=== PATIENT | male | born 1955 | race Caucasian/White ===

== ENCOUNTER 2021-05-17 10:46 | Inpatient (IN) | payer OTHER, MEDICARE, SELFPAY ==
[2021-05-17] VITALS (28 sets, daily range): BP systolic 103–188; BP diastolic 60–102; PULSE 74–123; RESP 15–47; TEMP 36.2–36.9; O2SAT 91–100; BMI 26.3; BMI 25.5
--- NOTE | 2021-05-17 11:16 | DI.RAD.S_ITS ---
PROCEDURE: XR CHEST 1V INDICATIONS: shortness of breath TECHNIQUE: One view of the chest was acquired. COMPARISON: [facility], [place], PET NECK TO MID THIGH STD, 01/10/2016, 9:01. [facility], CT, CT ANGIO CHEST PE, 12/14/2015, 15:42. FINDINGS: Surgical changes and devices: None. Lungs and pleura: Probable moderate right pleural effusion with associated right basilar atelectasis. Mediastinum: Mediastinal contours appear normal. Heart size is normal. Bones and chest wall: Question vague sclerotic appearance of the bones. Overlying soft tissues appear unremarkable. IMPRESSION: 1. Probable right pleural effusion with associated right basilar atelectasis. 2. Question vague sclerotic appearance of the bones. Comment: Consider chest CT for further evaluation. Dictated by: Billy White M.D. on 05/17/2021 at 12:05 Approved by: Billy White M.D. on 05/17/2021 at 12:09
--- NOTE | 2021-05-17 11:48 | ED.SOB ---
HPI - SOB/Dyspnea General Chief Complaint: Shortness of Breath/Dyspnea Stated Complaint: Possible blood clot- sent by PCP Time Seen by Provider: 05/17/21 11:19 Source: patient Mode of arrival: Ambulatory Limitations: no limitations History of Present Illness HPI Narrative: 65-year-old male nonsmoker with history of hypertension and stage IV prostate cancer presents at the request of their primary care provider (per the ) for evaluation of blood clot. Patient reports increasing shortness of breath and sharp and stabbing chest pain over the past 2 weeks. His pain is worse with deep breath and with ambulation. He denies any radiation of the pain and states it is sharp and stabbing. He does have increasing shortness of breath and fatigue, with exertion. He has had no recent travel. He has had no fever or chills. He has had cough but without any blood. He denies any pain, swelling of his lower extremity Related Data Home Medications Medication Instructions Recorded Confirmed ASPIRIN (Aspirin Ec) 81 mg PO Q DAY #0 01/05/07 05/17/21 bicalutamide 50 mg tablet 50 mg PO DAILY 05/17/21 05/17/21 carvedilol 12.5 mg tablet 12.5 mg PO BID 05/17/21 05/17/21 cholecalciferol (vitamin D3) 250 250 mcg PO DAILY 05/17/21 05/17/21 mcg (10,000 unit) tablet cyanocobalamin (vitamin B-12) 100 100 mcg PO DAILY 05/17/21 05/17/21 mcg tablet dexamethasone 1 mg tablet 1 mg PO DAILY 05/17/21 05/17/21 duloxetine 30 mg capsule,delayed 30 mg PO DAILY 05/17/21 05/17/21 release fluticasone propionate 220 1 puff INHALATION BID 05/17/21 05/17/21 mcg/actuation HFA aerosol inhaler (Flovent HFA) losartan 50 mg tablet 50 mg PO DAILY 05/17/21 05/17/21 mirtazapine 15 mg tablet 15 mg PO DAILY 05/17/21 05/17/21 omeprazole 20 mg capsule,delayed 20 mg PO DAILY 05/17/21 05/17/21 release ondansetron 8 mg disintegrating 8 mg TRANSLINGUAL Q8H PRN 05/17/21 05/17/21 tablet oxycodone 5 mg tablet 5 mg PO Q4H PRN 05/17/21 05/17/21 prochlorperazine maleate 10 mg 10 mg PO Q6H PRN 05/17/21 05/17/21 tablet Allergies Allergy/AdvReac Type Severity Reaction Status Date / Time No Known Drug Allergies Allergy Verified 05/17/21 11:12 Review of Systems Review of Systems Narrative: GENERAL: Denies chills, fatigue, malaise, fever, sweats. HEENT: Denies sinus pain, ear pain, sore throat, difficulty swallowing, dizziness. RESPIRATORY: See HPI CARDIOVASCULAR: See HPI GASTROINTESTINAL: Denies nausea, vomiting, abdominal pain, diarrhea, constipation, melena. : Denies dysuria, frequency, incontinence, hematuria, urinary retention. MUSCULOSKELETAL: denies weakness, joint pain, or bony pain SKIN: Denies rash, skin lesions, or other NEUROLOGIC: Denies weakness, headache, numbness, change in speech, confusion, seizures, incoordination. PSYCHIATRIC: No concerning psychosocial issues. 12 point review of systems is negative except for those stated above Patient History Social History household members: spouse Smoking Status: Former smoker alcohol intake: current Smoking Status: Unknown if ever smoked alcohol intake frequency: a few times a week Substance Use Type: does not use Exam Narrative Exam Narrative: GENERAL: [65] year old patient appears stated age. Well-developed patient, in mild distress. Resting comfortably HEAD: Atraumatic. Normocephalic. EYES: Pupils equal round and reactive. Extraocular motions intact. No scleral icterus. No injection or drainage. ENT: Nose without bleeding, purulent drainage. Throat without erythema, tonsillar hypertrophy or exudate. Airway patent. NECK: Trachea midline. Non tender CARDIOVASCULAR: Regular rate and rhythm without murmurs, gallops, or rubs. RESPIRATORY: No significant work of breathing, however there are faint crackles noted bilaterally GASTROINTESTINAL: Abdomen soft, non-tender, nondistended. EXTREMITIES: No edema or joint tenderness. BACK: Nontender without deformity or crepitance. No flank tenderness. NEURO: AOx3. SKIN: No rash or erythema of visible areas Initial Vital Signs Initial Vital Signs: Vital Signs Temperature 97.2 F L 05/17/21 11:12 Pulse Rate 80 05/17/21 11:12 Respiratory Rate 15 05/17/21 11:12 Blood Pressure 175/82 H 05/17/21 11:12 Pulse Oximetry 97 05/17/21 11:12 Course Orders Ordered: ED Orders 05/17/21 11:16 XR chest 1V Stat 05/17/21 11:28 EKG-12 Lead Stat 05/17/21 11:35 Complete Blood Count AUTO DIFF Stat Comprehensive Metabolic Panel Stat Lactate (Lactic Acid) Stat NT-proBNP (BNP-Adult 18+) Stat Troponin & CK Cardiac Panel Stat 05/17/21 12:41 CT angio chest PE protocol Stat 05/17/21 13:08 Urinalysis and Microscopic Stat 05/17/21 13:26 COVID19 - ADMIT ([employer] swab/PCR) Stat COVID19 -Nasal swab/Pre-Proc Stat Acetaminophen (Acetaminophen 325 Mg Tablet) 650 mg PO Q6HR PRN PRN Reason: Fever/Mild Pain (1-3) Hydrocodone Bitart/Acetaminophen (Hydrocodone/Acet 5/325 Tablet) 2 tab PO Q4HR PRN PRN Reason: Pain, Severe (7-10) Aspirin (Aspirin Ec 81 Mg Tablet) 81 mg PO DAILY [facility] Bicalutamide (Bicalutamide 50 Mg Tablet) 50 mg PO DAILY [facility] Carvedilol (Carvedilol 12.5 Mg Tablet) 12.5 mg PO BID [facility] Dexamethasone (Dexamethasone 1 Mg Tablet) 1 mg PO DAILY [facility] Duloxetine HCl (Duloxetine 30 Mg Capsule) 30 mg PO DAILY [facility] Enoxaparin Sodium (Enoxaparin 40 Mg/0.4 Ml Syringe) 40 mg SUBCUT DAILY [facility] Losartan Potassium (Losartan 50 Mg Tablet) 50 mg PO DAILY [facility] Magnesium Hydroxide (Magnesium Hydroxide 30 Ml Udc) 30 ml PO DAILY PRN PRN Reason: Reflux Mirtazapine (Mirtazapine 15 Mg Tablet) 15 mg PO DAILY [facility] Naloxone HCl (Naloxone 0.4 Mg/Ml Vial) 0.2 mg IV Q2MIN PRN PRN Reason: Opiate Reversal Fluticasone Propionate [Flovent Hfa] 220 Mcg/Actuation Hfa 1 puff INH BID [facility] Ondansetron HCl (Ondansetron 4 Mg/2 Ml Inj) 4 mg IV Q8HR PRN PRN Reason: Nausea And Vomiting Oxycodone HCl (Oxycodone Ir 5 Mg Tablet) 5 mg PO Q4H PRN PRN Reason: Pain (Scale Score 4-6) Pantoprazole Sodium (Pantoprazole Dr 20 Mg Tablet) 20 mg PO 0600 JEAN-CLAUDE Prochlorperazine (Prochlorperazine 5 Mg Tablet) 10 mg PO Q6H PRN PRN Reason: Nausea Sennosides (Sennosides 8.6 Mg Tablet) 17.2 mg PO BEDTIME JEAN-CLAUDE Discontinued Medications Furosemide (Furosemide 40 Mg/4 Ml Vial) 40 mg IV NOW ONE Stop: 05/17/21 14:12 Last Admin: 05/17/21 14:26 Dose: 40 mg Documented by: DENNYS Oxycodone HCl (Oxycodone Ir 5 Mg Tablet) 10 mg PO NOW ONE Stop: 05/17/21 15:30 Last Admin: 05/17/21 15:45 Dose: 10 mg Documented by: DENNYS Reevaluation(s) Reevaluation #1: Upon return from CT he is noticeably more short of breath ends now requiring between 2 and 4 L by nasal cannula Reevaluation #2: Patient was taken off nasal cannula for a bit and seemed to be doing okay, minor ambulation caused patient to become significantly hypoxic and increased work of breathing. At this point he has taken back to his bed, put back on nasal cannula decision to admit Vital Signs Vital signs: Vital Signs - 8 hr 05/17/21 11:12 05/17/21 11:27 05/17/21 11:30 Temperature 97.2 F L Pulse Rate 80 75 74 Respiratory Rate 15 35 H Blood Pressure 175/82 H Pulse Oximetry 97 92 94 05/17/21 11:32 05/17/21 12:00 05/17/21 12:01 Temperature Pulse Rate 75 77 81 Respiratory Rate 34 H 33 H 36 H Blood Pressure 177/86 H 173/79 H Pulse Oximetry 96 94 95 05/17/21 12:30 05/17/21 12:57 05/17/21 13:00 Temperature Pulse Rate 80 98 H 91 H Respiratory Rate 35 H 41 H 37 H Blood Pressure 169/80 H 188/102 H 176/81 H Pulse Oximetry 95 91 98 05/17/21 13:30 05/17/21 13:31 05/17/21 13:40 Temperature Pulse Rate 96 H 107 H Respiratory Rate 38 H Blood Pressure 170/97 H Pulse Oximetry 100 99 05/17/21 14:00 05/17/21 14:27 05/17/21 14:30 Temperature Pulse Rate 97 H 96 H 93 H Respiratory Rate 36 H 26 H 37 H Blood Pressure 159/82 H 159/82 H 175/84 H Pulse Oximetry 99 94 95 05/17/21 15:00 05/17/21 15:34 05/17/21 15:36 Temperature Pulse Rate 96 H 119 H 102 H Respiratory Rate 37 H 47 H 45 H Blood Pressure 155/88 H 185/79 H Pulse Oximetry 93 93 92 05/17/21 16:00 05/17/21 16:30 Temperature Pulse Rate 112 H 117 H Respiratory Rate 39 H 24 Blood Pressure 129/84 136/86 Pulse Oximetry 93 93 MDM - SOB/Dyspnea Lab Data Result diagrams: 05/17/21 11:35 05/17/21 11:35 Labs: Lab Results 05/17/21 05/17/21 05/17/21 Range/Units 11:35 11:35 11:35 WBC 10.1 (4.5-11.0) X10^3/uL RBC 3.14 L (4.5-5.9) X10^6/uL Hgb 11.3 L (13.5-17.5) g/dL Hct 33.4 L (41-53) % MCV 106.5 H (80-100) fL MCH 35.9 H (26-34) PG MCHC 33.7 (30-36) % RDW 19.0 H (11.6-14.8) % Plt Count 31 L* (150-400) X10^3/uL Neut % (Auto) Not Reportable Lymph % (Auto) Not Reportable [place] % (Auto) Not Reportable Eos % (Auto) Not Reportable Baso % (Auto) Not Reportable Lymph # (Auto) Not Reportable [place] # (Auto) Not Reportable Baso # (Auto) Not Reportable Total Counted 100 Seg Neutrophils % 44.0 (38-70) % Band Neutrophils % 14.0 H (3-7) % Lymphocytes % (Manual) 20.0 L (25-45) % Atypical Lymphs % 1.0 H ( - 0) % Monocytes % (Manual) 6.0 (2-11) % Eosinophils % (Manual) 2.0 (2-4) % Metamyelocytes % 6.0 H (-0) % Myelocytes % 7.0 H (-0) % Neutrophils # (Manual) 5858 (4062-1557) /uL Nucleated RBCs 12 H ( - 0) #/Diff Platelet Estimate Decreased on smear RBC Morphology See below Polychromasia 3+ H Macrocytosis 3+ H Sodium 132 L (137-145) mmol/L Potassium 4.9 (3.4-5.1) mmol/L Chloride 95 L (98-107) mmol/L Carbon Dioxide 27 (22-32) mmol/L BUN 24 H (9-20) mg/dL Creatinine 0.69 (0.66-1.25) mg/dL Estimated GFR > 60.0 (>60) mL/min BUN/Creatinine Ratio 34.8 H (6-22) Glucose 102 (80-110) mg/dL Lactate 1.7 (0.7-2.1) mmol/L Calcium 9.9 (8.4-10.2) mg/dL Total Bilirubin 1.7 H (0.2-1.3) mg/dL AST 69 H (17-59) IU/L ALT 37 (<50) IU/L Alkaline Phosphatase 341 H (38-126) U/L Total Creatine Kinase (55-170) U/L CK-MB (CK-2) CK-MB (CK-2) Rel Index Troponin I (0.01-0.034) ng/mL NT-Pro-B Natriuret Pep 961 H (<125) pg/mL Total Protein 7.8 (6.3-8.2) g/dL Albumin 3.9 (3.5-5.0) g/dL Globulin 3.9 (1.7-4.1) g/dL Albumin/Globulin Ratio 1.0 (1.0-2.8) Urine Color Urine Appearance Urine pH (4.5-8.0) Ur Specific [place] (1.000-1.035) Urine Protein (Negative) Urine Glucose (UA) (Negative) g/dL Urine Ketones (NEGATIVE) Urine Occult Blood (Negative) Urine Nitrate (Negative) Urine Bilirubin (NEGATIVE) Urine Urobilinogen (0.2) E.U./dL Ur Leukocyte Esterase (NEGATIVE) Urine RBC (0-5/HPF) Urine WBC (0-5/HPF) Ur Squamous Epith Cells (0-5/HPF) Urine Bacteria (None) Ur Culture Indicated? SARS-CoV-2 (PCR) (Negative) 05/17/21 05/17/21 05/17/21 Range/Units 11:35 13:08 13:26 WBC (4.5-11.0) X10^3/uL RBC (4.5-5.9) X10^6/uL Hgb (13.5-17.5) g/dL Hct (41-53) % MCV (80-100) fL MCH (26-34) PG MCHC (30-36) % RDW (11.6-14.8) % Plt Count (150-400) X10^3/uL Neut % (Auto) Lymph % (Auto) [place] % (Auto) Eos % (Auto) Baso % (Auto) Lymph # (Auto) [place] # (Auto) Baso # (Auto) Total Counted Seg Neutrophils % (38-70) % Band Neutrophils % (3-7) % Lymphocytes % (Manual) (25-45) % Atypical Lymphs % ( - 0) % Monocytes % (Manual) (2-11) % Eosinophils % (Manual) (2-4) % Metamyelocytes % (-0) % Myelocytes % (-0) % Neutrophils # (Manual) (7776-1905) /uL Nucleated RBCs ( - 0) #/Diff Platelet Estimate RBC Morphology Polychromasia Macrocytosis Sodium (137-145) mmol/L Potassium (3.4-5.1) mmol/L Chloride (98-107) mmol/L Carbon Dioxide (22-32) mmol/L BUN (9-20) mg/dL Creatinine (0.66-1.25) mg/dL Estimated GFR (>60) mL/min BUN/Creatinine Ratio (6-22) Glucose (80-110) mg/dL Lactate (0.7-2.1) mmol/L Calcium (8.4-10.2) mg/dL Total Bilirubin (0.2-1.3) mg/dL AST (17-59) IU/L ALT (<50) IU/L Alkaline Phosphatase (38-126) U/L Total Creatine Kinase 30 L (55-170) U/L CK-MB (CK-2) TNP CK-MB (CK-2) Rel Index TNP Troponin I < 0.012 (0.01-0.034) ng/mL NT-Pro-B Natriuret Pep (<125) pg/mL Total Protein (6.3-8.2) g/dL Albumin (3.5-5.0) g/dL Globulin (1.7-4.1) g/dL Albumin/Globulin Ratio (1.0-2.8) Urine Color Yellow Urine Appearance Clear Urine pH 7.0 (4.5-8.0) Ur Specific [place] 1.010 (1.000-1.035) Urine Protein Negative (Negative) Urine Glucose (UA) Trace H (Negative) g/dL Urine Ketones Negative (NEGATIVE) Urine Occult Blood 1+ H (Negative) Urine Nitrate Negative (Negative) Urine Bilirubin Negative (NEGATIVE) Urine Urobilinogen 4.0 H (0.2) E.U./dL Ur Leukocyte Esterase Negative (NEGATIVE) Urine RBC 5-10/hpf H (0-5/HPF) Urine WBC 0-1/hpf (0-5/HPF) Ur Squamous Epith Cells 0-1 /hpf (0-5/HPF) Urine Bacteria Few (2-10) H (None) Ur Culture Indicated? Cult not indicated SARS-CoV-2 (PCR) Negative (Negative) 05/17/21 Range/Units 13:26 WBC (4.5-11.0) X10^3/uL RBC (4.5-5.9) X10^6/uL Hgb (13.5-17.5) g/dL Hct (41-53) % MCV (80-100) fL MCH (26-34) PG MCHC (30-36) % RDW (11.6-14.8) % Plt Count (150-400) X10^3/uL Neut % (Auto) Lymph % (Auto) [place] % (Auto) Eos % (Auto) Baso % (Auto) Lymph # (Auto) [place] # (Auto) Baso # (Auto) Total Counted Seg Neutrophils % (38-70) % Band Neutrophils % (3-7) % Lymphocytes % (Manual) (25-45) % Atypical Lymphs % ( - 0) % Monocytes % (Manual) (2-11) % Eosinophils % (Manual) (2-4) % Metamyelocytes % (-0) % Myelocytes % (-0) % Neutrophils # (Manual) (0218-8738) /uL Nucleated RBCs ( - 0) #/Diff Platelet Estimate RBC Morphology Polychromasia Macrocytosis Sodium (137-145) mmol/L Potassium (3.4-5.1) mmol/L Chloride (98-107) mmol/L Carbon Dioxide (22-32) mmol/L BUN (9-20) mg/dL Creatinine (0.66-1.25) mg/dL Estimated GFR (>60) mL/min BUN/Creatinine Ratio (6-22) Glucose (80-110) mg/dL Lactate (0.7-2.1) mmol/L Calcium (8.4-10.2) mg/dL Total Bilirubin (0.2-1.3) mg/dL AST (17-59) IU/L ALT (<50) IU/L Alkaline Phosphatase (38-126) U/L Total Creatine Kinase (55-170) U/L CK-MB (CK-2) CK-MB (CK-2) Rel Index Troponin I (0.01-0.034) ng/mL NT-Pro-B Natriuret Pep (<125) pg/mL Total Protein (6.3-8.2) g/dL Albumin (3.5-5.0) g/dL Globulin (1.7-4.1) g/dL Albumin/Globulin Ratio (1.0-2.8) Urine Color Urine Appearance Urine pH (4.5-8.0) Ur Specific [place] (1.000-1.035) Urine Protein (Negative) Urine Glucose (UA) (Negative) g/dL Urine Ketones (NEGATIVE) Urine Occult Blood (Negative) Urine Nitrate (Negative) Urine Bilirubin (NEGATIVE) Urine Urobilinogen (0.2) E.U./dL Ur Leukocyte Esterase (NEGATIVE) Urine RBC (0-5/HPF) Urine WBC (0-5/HPF) Ur Squamous Epith Cells (0-5/HPF) Urine Bacteria (None) Ur Culture Indicated? SARS-CoV-2 (PCR) Negative (Negative) Imaging Data CT scan - chest: Radiologist's Impression: Ariel Hercules 65 M [address] [id number] Scan ReportSigned Patient: MargretjuanAriel EMR#: [id number]: 3Acct:[id number]/Sex: 65 / MDate of Service: 05/17/21Loc: EDAccession Number: [id number] Procedure: CT angio chest PE protocol Ordering Provider: Antoine Phillips D.O. PROCEDURE: CT ANGIO CHEST PE PROTOCOL INDICATIONS: chest pain, SOB, elevated D Dimer at outside facility, hx of TECHNIQUE: After the administration of intravenous contrast, 2 mm thick sections acquired from the pulmonary apices to the posterior costophrenic angles. 3-dimensional maximum intensity projection (MIP) coronal and sagittal reformats were then acquired through the thorax. For radiation dose reduction, the following was used: automated exposure control, adjustment of mA and/or kV according to patient size. COMPARISON: [facility], , XR CHEST 1V, 05/17/2021, 11:35. FINDINGS: Image quality: Excellent. Pulmonary arteries: Pulmonary arteries are normal in size, and demonstrate no intraluminal filling defects to suggest central pulmonary embolism. Lungs and pleura: There is patchy bilateral ground-glass opacity, left greater than right. Cannot exclude viral pneumonia. There is chronic volume loss in the right lung associated with a small right pleural effusion. There is insufficient fluid currently for thoracentesis.. Central and peripheral airways are patent. Mediastinum: Heart size is normal, without pericardial effusion. No mediastinal or hilar adenopathy. Thoracic aorta is normal in caliber and enhancement. Esophagus is normal in caliber, without hiatal hernia. Bones and chest wall: There is a diffuse subtle sclerotic process throughout numerous bones consistent with sclerotic metastatic prostate to bone. There is a healing pathologic fracture of the left posterior 9th rib. Thyroid gland is unremarkable as visualized. No axillary or supraclavicular adenopathy. Abdomen: Visualized upper abdominal solid organs appear normal in the early arterial phase of enhancement. IMPRESSION: 1. No evidence acute pulmonary emboli. 2. Patchy bilateral ground-glass opacities, left greater than right. Cannot exclude viral pneumonia. Alternatively, this may potentially represent asymmetric pulmonary edema or other inflammatory or infectious process. 3. Small right pleural effusion with chronic right sided volume loss. Fluid insufficient to sample currently. 4. Sclerotic bony metastatic disease consistent with prostate metastatic disease. Dictated by: Billy White M.D. on 05/17/2021 at 13:11 Approved by: Billy White M.D. on 05/17/2021 at 13:30 Discharge Plan Departure Patient Disposition: Admitted As Inpatient Clinical Impression: Acute hypoxemic respiratory failure CHF (congestive heart failure) Qualifiers: Heart failure type: unspecified Heart failure chronicity: unspecified Qualified Code(s): I50.9 - Heart failure, unspecified Admit Date/Time: 05/17/21 16:37 Admit Provider: Ivone Segundo
[2021-05-17 12:12] LABS: Hematocrit 33.4 % (41-53); Hemoglobin 11.3 g/dL (13.5-17.5); Mean Corpuscular HGB Conc 33.7 % (30-36); Mean Corpuscular Hemoglobin 35.9 PG (26-34); Mean Corpuscular Volume 106.5 fL (80-100); Red Blood Cell Count 3.14 X10^6/uL (4.5-5.9); White Blood Cell Count 10.1 X10^3/uL (4.5-11.0)
[2021-05-17 12:16] LABS: Add Manual Diff / Slide Review YES; Platelet Count 31 X10^3/uL (150-400)
[2021-05-17 12:18] LABS: Lactate (Lactic Acid) 1.7 mmol/L (0.7-2.1)
[2021-05-17 12:19] LABS: Alanine Aminotransferase 37 IU/L (<50); Albumin 3.9 g/dL (3.5-5.0); Alkaline Phosphatase 341 U/L (38-126); Aspartate Aminotransferase 69 IU/L (17-59); BUN Creatinine Ratio 34.8 (6-22); Bilirubin Total 1.7 mg/dL (0.2-1.3); Blood Urea Nitrogen 24 mg/dL (9-20); Calcium 9.9 mg/dL (8.4-10.2); Carbon Dioxide 27 mmol/L (22-32); Chloride 95 mmol/L (98-107); Estimated Glomerular Filt Rate > 60.0 mL/min (>60); Globulin 3.9 g/dL (1.7-4.1); Glucose 102 mg/dL (80-110); Potassium 4.9 mmol/L (3.4-5.1); Sodium 132 mmol/L (137-145); Total Protein 7.8 g/dL (6.3-8.2)
[2021-05-17 12:21] LABS: HEMOLYSIS 66 (0-50)
[2021-05-17 12:29] LABS: NT-proBNP (BNP-Adult 18+) 961 pg/mL (<125)
--- NOTE | 2021-05-17 12:41 | DI.CT.S_ITS ---
PROCEDURE: CT ANGIO CHEST PE PROTOCOL INDICATIONS: chest pain, SOB, elevated D Dimer at outside facility, hx of TECHNIQUE: After the administration of intravenous contrast, 2 mm thick sections acquired from the pulmonary apices to the posterior costophrenic angles. 3-dimensional maximum intensity projection (MIP) coronal and sagittal reformats were then acquired through the thorax. For radiation dose reduction, the following was used: automated exposure control, adjustment of mA and/or kV according to patient size. COMPARISON: [facility], CR, XR CHEST 1V, 05/17/2021, 11:35. FINDINGS: Image quality: Excellent. Pulmonary arteries: Pulmonary arteries are normal in size, and demonstrate no intraluminal filling defects to suggest central pulmonary embolism. Lungs and pleura: There is patchy bilateral ground-glass opacity, left greater than right. Cannot exclude viral pneumonia. There is chronic volume loss in the right lung associated with a small right pleural effusion. There is insufficient fluid currently for thoracentesis.. Central and peripheral airways are patent. Mediastinum: Heart size is normal, without pericardial effusion. No mediastinal or hilar adenopathy. Thoracic aorta is normal in caliber and enhancement. Esophagus is normal in caliber, without hiatal hernia. Bones and chest wall: There is a diffuse subtle sclerotic process throughout numerous bones consistent with sclerotic metastatic prostate to bone. There is a healing pathologic fracture of the left posterior 9th rib. Thyroid gland is unremarkable as visualized. No axillary or supraclavicular adenopathy. Abdomen: Visualized upper abdominal solid organs appear normal in the early arterial phase of enhancement. IMPRESSION: 1. No evidence acute pulmonary emboli. 2. Patchy bilateral ground-glass opacities, left greater than right. Cannot exclude viral pneumonia. Alternatively, this may potentially represent asymmetric pulmonary edema or other inflammatory or infectious process. 3. Small right pleural effusion with chronic right sided volume loss. Fluid insufficient to sample currently. 4. Sclerotic bony metastatic disease consistent with prostate metastatic disease. Dictated by: Billy White M.D. on 05/17/2021 at 13:11 Approved by: Billy White M.D. on 05/17/2021 at 13:30
[2021-05-17 12:47] LABS: Macrocytosis 3+; Neutrophils Absolute Manual 5858 /uL (3000-5900); Nucleated Red Blood Cells 12 #/Diff; Polychromasia 3+; Total Cells Counted 100
[2021-05-17 12:48] LABS: Platelet Estimate Decreased on smear
[2021-05-17 13:15] LABS: Appearance Urine UA CLEAR; Bilirubin Urine UA NEGATIVE (NEGATIVE); Color Urine UA YELLOW; Glucose Urine UA TRACE g/dL (Negative); Ketones Urine UA NEGATIVE (NEGATIVE); Leukocyte Esterase Urine UA NEGATIVE (NEGATIVE); Nitrite Urine UA NEGATIVE (Negative); Occult Blood Urine UA 1+ (Negative); Protein Urine UA NEGATIVE (Negative)
[2021-05-17 13:26] LABS: Bacteria Urine Few (2-10); Culture Indicated Urine Cult Not Indicated; RBC Urine 5-10/HPF (0-5/HPF); Squamous Epithelial Cell Urine 0-1 /HPF (0-5/HPF); WBC Urine 0-1/HPF (0-5/HPF)
[2021-05-17 13:49] LABS: COVID19 -Nasal RAPID Negative (Negative)
[2021-05-17] MEDS: FUROSEMIDE 40 MG/4 ML VIAL IV (14:26)
--- NOTE | 2021-05-17 14:26 | PC.NURSE ---
Pt taken off of O2 to do a RA trail
[2021-05-17 14:27] LABS: COVID19 - ADMIT (NP swab/PCR) Negative (Negative)
--- NOTE | 2021-05-17 15:36 | PC.NURSE ---
ambulation trial, tachypnea 30's oxygen saturation down to 89% on RA abd HR 135
[2021-05-17] MEDS: OXYCODONE IR 5 MG TABLET 10 MG PO (15:45)
[2021-05-17 15:59] LABS: Creatine Kinase 30 U/L (55-170)
[2021-05-17 16:12] LABS: Troponin I < 0.012 ng/mL (0.01-0.034)
[2021-05-17 19:09] LABS: Magnesium 1.4 mg/dL (1.6-2.3)
[2021-05-17 19:22] LABS: Troponin I < 0.012 ng/mL (0.01-0.034)
[2021-05-17] MEDS: BICALUTAMIDE 50 MG TABLET PO (19:36)
[2021-05-17 19:53] LABS: Thyroid Stimulating Hormone 5.98 uIU/mL (0.47-4.68)
--- NOTE | 2021-05-17 19:54 | DI.ECHO.S_ITS ---
[facility]---------+ [facility] +---------+ : : [address] : : : : [id number] : : : : Phone: [phone] Echocardiogram Report + + :Name: GOLD ADAM Study Date: 05/18/2021 Height: 67 in : :[facility] ReadingLocation: Weight: 163 lb : : Gender: Male BSA: 1.9 m2 : :: 1955 Age: 65 yrs BP: 109/65 mmHg: :Reason For Study: SOB : :Ordering Physician: RESHMA, : :LILLIAN Performed By: Adams Brizuela : :Referring: LILLIAN JUSTICE : + + Interpretation Summary 1) Normal left ventricular thickness, size, wall motion, and systolic function (EF 60-65%). 2) Normal right ventricular size and function. 3) No significant valvular abnormalities. 4) No prior Echo available for comparison. Procedure: A two-dimensional transthoracic echocardiogram with color flow and Doppler was performed. The study quality was technically difficult. There is no prior echocardiogram noted for this patient. A contrast injection of Definity was performed to improve assessment of LV function. Left Ventricle: The left ventricle is normal in size and wall thickness. Left ventricular systolic function is normal. The ejection fraction is estimated to be 60-65%. There are no focal wall motion abnormalities. Diastolic function could not be accurately assessed due to unobtainable data. Right Ventricle: The right ventricle is normal in size and function. Atria: Both atria are normal in size. There is no Doppler evidence for an interatrial shunt. Mitral Valve: The mitral valve is normal in structure and function. There is no mitral regurgitation noted. Aortic Valve: There is mild aortic valve sclerosis. There is no aortic valve stenosis. No aortic regurgitation is present. Tricuspid Valve: The tricuspid valve is normal in structure and function. There is a trace or physiologic amount of tricuspid regurgitation. Pulmonary artery pressures cannot be estimated because of the lack of a measurable TR jet velocity but the IVC suggests a CVP of around 3 mmHg. Pulmonic Valve: The pulmonic valve is not well visualized. There is no pulmonic valvular regurgitation. Great Vessels: The aortic root is normal size. The ascending aorta could not be visualized. The IVC is of normal diameter and collapses greater than 50% with a sniff. This suggests a low right atrial pressure of 3 mm Hg. Pericardium/ Pleura There is no pericardial effusion. There is no pleural effusion. MMode/2D Measurements & Calculations LVIDd: 3.2 cm LVOT diam: 2.1 cm LVIDs: 2.1 cm Ao root diam: 3.5 cm FS: 33.7 % IVSd: 1.0 cm LVPWd: 0.89 cm LV ramirez. diameter/BSA (cm/m^2): 1.7 LV sys. diameter/BSA (cm/m^2): 1.1 LA A2 area: 12.4 cm2 RA long axis: 3.9 cm LA A4 area: 11.2 cm2 RA area: 10.4 cm2 LA length (vol): 4.5 cm RA vol: 23.6 ml LA vol: 26.2 ml RA : 12.8 ml/m2 LA vol index: 14.1 ml/m2 TAPSE: 1.7 cm Doppler Measurements & Calculations Ao V2 max: 103.8 cm/sec LVOT Max Ruben: 99.5 cm/sec Ao V2 mean: 82.0 cm/sec LV V1 max P.0 mmHg Ao max P.3 mmHg LV V1 VTI: 18.1 cm Ao mean P.8 mmHg GEE(I,D): 3.8 cm2 Ao V2 VTI: 15.8 cm GEE(V,D): 3.2 cm2 sev ratio: 1.1 GEE indexed to BSA (cm^2/m^2): 2.1 MV E max ruben: 42.8 cm/sec PA pr(Accel): 53.3 mmHg MV A max ruben: 86.2 cm/sec MV E/A: 0.50 Med Peak E' Ruben: 3.4 cm/sec E/E' med: 12.6 Lat Peak E' Ruben: 6.7 cm/sec E/E' lat: 6.4 E/e' average: 9.5 MV dec time: 0.25 sec SV(LVOT): 60.4 ml Reading Physician:12:50 PM
[2021-05-17] MEDS: carvediloL 12.5 MG TABLET PO (19:58)
[2021-05-17] MEDS: LOSARTAN 50 MG TABLET PO (19:58)
[2021-05-17] MEDS: METOPROLOL TARTRATE 5 MG/5 ML INJ IV (20:35)
[2021-05-17] MEDS: PHENAZOPYRIDINE 100 MG TABLET PO (20:39)
[2021-05-17 21:43] LABS: pH VBG 7.52 (7.33-7.43)
[2021-05-17 21:44] LABS: HCO3 VBG 28 mmol/L (23-28); Oxygen Saturation VBG 96 % (70-75); PCO2 VBG 34.4 mmHg (45-50); PO2 VBG 72 mmHg (35-45); Total CO2 VBG 29 mmol/L (24-29)
[2021-05-17 22:02] LABS: Troponin I < 0.012 ng/mL (0.01-0.034)
--- NOTE | 2021-05-17 22:14 | P.HP_ITS ---
History of Present Illness History of Present Illness Date Patient Seen: 05/17/21 Time Patient Seen: 18:23 Chief complaint: Possible blood clot- sent by PCP Narrative: Patient is a 65-year-old male Ariel Hercuels presented to the ED at the request of his PCP for evaluation of blood clot. Patient reports increasing shortness of breath and sharp and stabbing chest pain over the past 2 weeks. His pain is worse with deep breath and with ambulation. He denies any radiation of the pain and states it is sharp and stabbing. He does have increasing shortness of breath and fatigue, with exertion. He has had no recent travel. He has had no fever or chills. He has had a dry cough but without production or blood. Patient is complaining of pain with urination which has been chronic for several months and he also states that he has not had a bowel movement in 3 days. Patient also reports that he has had occasional right ankle swelling. Patient states that in February he did have a pleural effusion with thoracentesis in the removed 1 L of fluid. He denies no other recent illness other than prostate cancer (03/09), no recent travel, or exposure to others who are sick, he denies recent head injury or trauma, patient denies any cardiac history CHF, COPD, asthma, respiratory disease, and quit smoking 32 yrs ago. Patient has a history of hypertension, GERD, prostate cancer undergoing daily oral chemotherapy regimen which started in February 2021, patient has a history of a pleural effusion in February of which they removed 1 L, he denies any other medical history. Patient's oncologist is Dr. Mayen @ [facility] and his PCP is with [facility]. Upon admit exam patient has increased work of breathing, using accessory muscles and has increasing shortness of breath on room air satting 88-92, with tachycardic heart rate between 115-136, the patient denies chest pain at this time except for when trying to take a deep breath. Patient's breathing is shallow tachypneic, pale, and diaphoretic. Patient's vitals floor temp 97.2?, BP 152/86, RR 118, RR 27, and was satting between 88-91% on room air. Ordered stat respiratory consult patient was placed on 10 L high-flow which seemed to improve his respiratory rate. Though patient's heart rate continued to be tachycardic up to 140's. Patient's CBC demonstrated no elevated wbc's but did have neutrophils at 5858, MCV 106.5, and platelets 31 these are likely related to patient's ongoing p.o. chemotherapy treatment for prostate cancer. Patient's HGB 11.3, HCT 33.4. Patient has very mild hyponatremia Na 132, Cl 95, BUN 24, total creatinine kinase 30, total bili 1.7, AST 69, alk phos 341, BNP elevated at 961. Patient's chest CTA demonstrated no evidence acute pulmonary emboli. Patchy bilateral ground-glass opacities, left greater than right. Unable to rule out viral pneumonia. Alternatively, this may potentially represent asymmetric pulmonary edema or other inflammatory or infectious process. Small right pleural effusion with chronic right sided volume loss. Fluid insufficient to sample currently. Sclerotic bony metastatic disease consistent with prostate metastatic disease. Patient admitted for acute respiratory failure, respiratory alkalosis with hypocapnia and hypoxia. Patient History Medical History (Updated 05/17/21 @ 22:42 by NATA Beal-EDER) Benign essential HTN Chemotherapy-induced fatigue GERD (gastroesophageal reflux disease) Prostate cancer Surgical History (Updated 05/17/21 @ 22:42 by NATA Beal-EDER) History of cataract surgery History of detached retina repair Family & Social History Family History (Updated 05/17/21 @ 22:43 by NATA Beal-EDER) Mother Hypertension Sister Diabetes mellitus Social History: household members spouse, retired Prior Living Arrangements House Safety & Behavioral: Feels Safe in Current Yes Environment Been Physically Hurt or No Threatened By a Person Suicidal Ideation Description None Suicide Plan Description No Plan Tobacco & Substance use: Smoking Status Former smoker, quit 32 years ago, smoked for 10 years 1 pack per day alcohol intake current alcohol intake frequency a few times a week Substance Use Type does not use Meds Home Medications and Allergies Home Medications Medication Instructions Recorded Confirmed Type ASPIRIN (Aspirin Ec) 81 mg PO Q DAY #0 01/05/07 05/17/21 History bicalutamide 50 mg tablet 50 mg PO DAILY 05/17/21 05/17/21 History carvedilol 12.5 mg tablet 12.5 mg PO BID 05/17/21 05/17/21 History cholecalciferol (vitamin D3) 250 250 mcg PO DAILY 05/17/21 05/17/21 History mcg (10,000 unit) tablet cyanocobalamin (vitamin B-12) 100 100 mcg PO DAILY 05/17/21 05/17/21 History mcg tablet dexamethasone 1 mg tablet 1 mg PO DAILY 05/17/21 05/17/21 History duloxetine 30 mg capsule,delayed 30 mg PO DAILY 05/17/21 05/17/21 History release fluticasone propionate 220 1 puff INHALATION BID 05/17/21 05/17/21 History mcg/actuation HFA aerosol inhaler (Flovent HFA) losartan 50 mg tablet 50 mg PO DAILY 05/17/21 05/17/21 History mirtazapine 15 mg tablet 15 mg PO DAILY 05/17/21 05/17/21 History omeprazole 20 mg capsule,delayed 20 mg PO DAILY 05/17/21 05/17/21 History release ondansetron 8 mg disintegrating 8 mg TRANSLINGUAL Q8H PRN 05/17/21 05/17/21 History tablet oxycodone 5 mg tablet 5 mg PO Q4H PRN 05/17/21 05/17/21 History prochlorperazine maleate 10 mg 10 mg PO Q6H PRN 05/17/21 05/17/21 History tablet Allergies Allergy/AdvReac Type Severity Reaction Status Date / Time No Known Drug Allergies Allergy Verified 05/17/21 11:12 Review of Systems Review of Systems Narrative: All systems reviewed with the patient and are negative except otherwise documented. Exam Vital Signs (past 8 hours): - 05/17/21 14:27 05/17/21 14:30 05/17/21 15:00 Temperature Pulse Rate 96 H 93 H 96 H Respiratory Rate 26 H 37 H 37 H Blood Pressure 159/82 H 175/84 H 155/88 H Pulse Oximetry 94 95 93 05/17/21 15:34 05/17/21 15:36 05/17/21 16:00 Temperature Pulse Rate 119 H 102 H 112 H Respiratory Rate 47 H 45 H 39 H Blood Pressure 185/79 H 129/84 Pulse Oximetry 93 92 93 05/17/21 16:30 05/17/21 17:00 05/17/21 17:25 Temperature 98.4 F Pulse Rate 117 H 118 H 112 H Respiratory Rate 24 27 H 24 Blood Pressure 136/86 152/86 H 143/94 H Pulse Oximetry 93 92 91 05/17/21 18:05 05/17/21 19:21 05/17/21 21:00 Temperature 98.0 F Pulse Rate 123 H 89 Respiratory Rate 22 22 Blood Pressure 103/76 Pulse Oximetry 92 100 05/17/21 22:05 Temperature Pulse Rate Respiratory Rate Blood Pressure Pulse Oximetry 100 Oxygen Delivery Method Nasal Cannula Oxygen Flow Rate 2 Narrative Exam Narrative: General: Patient is a well-developed, well-nourished male, who has increased work of breathing (on Rm air), pale, and grimaces from pain while urinating (condom cath), in mild respiratory distress. HEENT: Normocephalic, atraumatic, extraocular muscles intact, oral pharynx is clear and mucous membranes are dry. Neck is supple and symmetric, trachea is midline. Negative for JVD Chest: Normal AP diameter and contour without kyphoscoliosis, no nasal flaring. Positive use of accessory muscles and tachypneic labored. Lungs: Auscultation of all lung klein decreased, diminished, shallow very little air exchange or movement noted expiratory wheezing in the left upper lobe greater diminished in bases, positive hunger for air. Cardio: regular rate and rhythm without murmur, rubs, or gallops, no carotid bruit, no cardiac pulsations present. Abdomen: Soft nontender, negative for organomegaly, or masses. Bowel sounds are present in all 4 quadrants without guarding or rebound, no CVA tenderness. Musculoskeletal: Muscle strength and tone are equal within normal limits, no deformity, crepitus, effusions, cyanosis, clubbing or edema present. Full range of motion intact radial and pedal pulses are normal. Skin: Diaphoretic and intact without rashes, ulcerations or petechiae. Neuro: Alert and orientated x3, strength is +5/5 in all extremities, sensation to touch intact, no gross deficits noted of cranial nerves. Psych: Patient has a well-kept appearance, appropriate affect, mental status attitude thought context and judgment are appropriate for age. Objective Labs Result Diagrams: 05/17/21 11:35 05/17/21 11:35 Labs: Laboratory Results - last 24 hr 05/17/21 05/17/21 05/17/21 11:35 11:35 11:35 WBC 10.1 RBC 3.14 L Hgb 11.3 L Hct 33.4 L MCV 106.5 H MCH 35.9 H MCHC 33.7 RDW 19.0 H Plt Count 31 L* Neut % (Auto) Not Reportable Lymph % (Auto) Not Reportable Ellsworth % (Auto) Not Reportable Eos % (Auto) Not Reportable Baso % (Auto) Not Reportable Lymph # (Auto) Not Reportable [place] # (Auto) Not Reportable Baso # (Auto) Not Reportable Total Counted 100 Seg Neutrophils % 44.0 Band Neutrophils % 14.0 H Lymphocytes % (Manual) 20.0 L Atypical Lymphs % 1.0 H Monocytes % (Manual) 6.0 Eosinophils % (Manual) 2.0 Metamyelocytes % 6.0 H Myelocytes % 7.0 H Neutrophils # (Manual) 5858 Nucleated RBCs 12 H Platelet Estimate Decreased on smear RBC Morphology See below Polychromasia 3+ H Macrocytosis 3+ H VBG pH VBG pCO2 VBG pO2 VBG HCO3 VBG Total CO2 VBG O2 Saturation VBG Base Excess Sodium 132 L Potassium 4.9 Chloride 95 L Carbon Dioxide 27 BUN 24 H Creatinine 0.69 Estimated GFR > 60.0 BUN/Creatinine Ratio 34.8 H Glucose 102 Lactate 1.7 Calcium 9.9 Magnesium Total Bilirubin 1.7 H AST 69 H ALT 37 Alkaline Phosphatase 341 H Total Creatine Kinase CK-MB (CK-2) CK-MB (CK-2) Rel Index Troponin I NT-Pro-B Natriuret Pep 961 H Total Protein 7.8 Albumin 3.9 Globulin 3.9 Albumin/Globulin Ratio 1.0 TSH Urine Color Urine Appearance Urine pH Ur Specific Caruthers Urine Protein Urine Glucose (UA) Urine Ketones Urine Occult Blood Urine Nitrate Urine Bilirubin Urine Urobilinogen Ur Leukocyte Esterase Urine RBC Urine WBC Ur Squamous Epith Cells Urine Bacteria Ur Culture Indicated? SARS-CoV-2 (PCR) 05/17/21 05/17/21 05/17/21 11:35 13:08 13:26 WBC RBC Hgb Hct MCV MCH MCHC RDW Plt Count Neut % (Auto) Lymph % (Auto) Ellsworth % (Auto) Eos % (Auto) Baso % (Auto) Lymph # (Auto) Ellsworth # (Auto) Baso # (Auto) Total Counted Seg Neutrophils % Band Neutrophils % Lymphocytes % (Manual) Atypical Lymphs % Monocytes % (Manual) Eosinophils % (Manual) Metamyelocytes % Myelocytes % Neutrophils # (Manual) Nucleated RBCs Platelet Estimate RBC Morphology Polychromasia Macrocytosis VBG pH VBG pCO2 VBG pO2 VBG HCO3 VBG Total CO2 VBG O2 Saturation VBG Base Excess Sodium Potassium Chloride Carbon Dioxide BUN Creatinine Estimated GFR BUN/Creatinine Ratio Glucose Lactate Calcium Magnesium Total Bilirubin AST ALT Alkaline Phosphatase Total Creatine Kinase 30 L CK-MB (CK-2) TNP CK-MB (CK-2) Rel Index TNP Troponin I < 0.012 NT-Pro-B Natriuret Pep Total Protein Albumin Globulin Albumin/Globulin Ratio TSH Urine Color Yellow Urine Appearance Clear Urine pH 7.0 Ur Specific Caruthers 1.010 Urine Protein Negative Urine Glucose (UA) Trace H Urine Ketones Negative Urine Occult Blood 1+ H Urine Nitrate Negative Urine Bilirubin Negative Urine Urobilinogen 4.0 H Ur Leukocyte Esterase Negative Urine RBC 5-10/hpf H Urine WBC 0-1/hpf Ur Squamous Epith Cells 0-1 /hpf Urine Bacteria Few (2-10) H Ur Culture Indicated? Cult not indicated SARS-CoV-2 (PCR) Negative 05/17/21 05/17/21 05/17/21 13:26 18:45 18:45 WBC RBC Hgb Hct MCV MCH MCHC RDW Plt Count Neut % (Auto) Lymph % (Auto) Ellsworth % (Auto) Eos % (Auto) Baso % (Auto) Lymph # (Auto) Ellsworth # (Auto) Baso # (Auto) Total Counted Seg Neutrophils % Band Neutrophils % Lymphocytes % (Manual) Atypical Lymphs % Monocytes % (Manual) Eosinophils % (Manual) Metamyelocytes % Myelocytes % Neutrophils # (Manual) Nucleated RBCs Platelet Estimate RBC Morphology Polychromasia Macrocytosis VBG pH VBG pCO2 VBG pO2 VBG HCO3 VBG Total CO2 VBG O2 Saturation VBG Base Excess Sodium Potassium Chloride Carbon Dioxide BUN Creatinine Estimated GFR BUN/Creatinine Ratio Glucose Lactate Calcium Magnesium 1.4 L Total Bilirubin AST ALT Alkaline Phosphatase Total Creatine Kinase CK-MB (CK-2) CK-MB (CK-2) Rel Index Troponin I < 0.012 NT-Pro-B Natriuret Pep Total Protein Albumin Globulin Albumin/Globulin Ratio TSH Urine Color Urine Appearance Urine pH Ur Specific Caruthers Urine Protein Urine Glucose (UA) Urine Ketones Urine Occult Blood Urine Nitrate Urine Bilirubin Urine Urobilinogen Ur Leukocyte Esterase Urine RBC Urine WBC Ur Squamous Epith Cells Urine Bacteria Ur Culture Indicated? SARS-CoV-2 (PCR) Negative 05/17/21 05/17/21 05/17/21 18:45 21:33 21:35 WBC RBC Hgb Hct MCV MCH MCHC RDW Plt Count Neut % (Auto) Lymph % (Auto) Ellsworth % (Auto) Eos % (Auto) Baso % (Auto) Lymph # (Auto) Ellsworth # (Auto) Baso # (Auto) Total Counted Seg Neutrophils % Band Neutrophils % Lymphocytes % (Manual) Atypical Lymphs % Monocytes % (Manual) Eosinophils % (Manual) Metamyelocytes % Myelocytes % Neutrophils # (Manual) Nucleated RBCs Platelet Estimate RBC Morphology Polychromasia Macrocytosis VBG pH 7.52 H VBG pCO2 34.4 L VBG pO2 72 H VBG HCO3 28 VBG Total CO2 29 VBG O2 Saturation 96 H VBG Base Excess 5.0 H Sodium Potassium Chloride Carbon Dioxide BUN Creatinine Estimated GFR BUN/Creatinine Ratio Glucose Lactate Calcium Magnesium Total Bilirubin AST ALT Alkaline Phosphatase Total Creatine Kinase CK-MB (CK-2) CK-MB (CK-2) Rel Index Troponin I < 0.012 NT-Pro-B Natriuret Pep Total Protein Albumin Globulin Albumin/Globulin Ratio TSH 5.98 H Urine Color Urine Appearance Urine pH Ur Specific Caruthers Urine Protein Urine Glucose (UA) Urine Ketones Urine Occult Blood Urine Nitrate Urine Bilirubin Urine Urobilinogen Ur Leukocyte Esterase Urine RBC Urine WBC Ur Squamous Epith Cells Urine Bacteria Ur Culture Indicated? SARS-CoV-2 (PCR) Assessment & Plan Assessment & Plan narrative: 1. Acute respiratory failure, respiratory alkalosis with hypocapnia, hypoxia, tachycardia, diaphoresis and tachypnea, acute, present on admission Cause of patient's ARF unknown etiology at this time based on elevated BNP most likely congestive heart failure. -Heart rate 114-1 36, respiratory rate 27-39, Na+ 132, Cl 95, BUN 24, total creatinine kinase 30, total bili 1.7, AST 69, alk phos 341, BNP 961, COVID negative, troponin x3 negative. SOFA score:6, Wells:2.5, ALYSSIA: 8.33 Low risk of intubation. -chest CTA demonstrated no evidence acute pulmonary emboli. Patchy bilateral ground-glass opacities, left greater than right. Unable to rule out viral pneumonia. Alternatively, this may potentially represent asymmetric pulmonary edema or other inflammatory or infectious process. Small right pleural effusion with chronic right sided volume loss. Fluid insufficient to sample currently. Sclerotic bony metastatic disease consistent with prostate metastatic disease.. Rule out- CHF-exacerbation, COPD, chemotherapy pulmonary toxicity, Viral infection, asthma exacerbation, worsening pleural effusion -monitor for central, neuromuscular, thoracic cage disorders, acute respiratory arrest, fluid overload -Echo ordered tomorrow r/o HF -patient given 5 mg IV metoprolol push along with his carvedilol and losartan his tachycardia resolved to a heart rate below 100. -magnesium 1.4- 2gm Rhyder provided. -a.m. labs ordered proBNP, magnesium, CBC, CMP, PT/PTT, Repeat VBG, respiratory panel. -patient to be monitored on tele medicine, vital signs q.4 hours, intake and output monitored Q shift, weight measure daily, diet: Heart healthy/Low sodium -Daily Q a.m. orthostatics. -Lasix 20 mg IV q.day titrate as needed -repeat BNP @9PM, serial troponins, echo, monitor renal function electrolytes keep K greater than 4, Mag greater than 2. -Call for RR> 30, SaO2<92%, SBP<95, U/0 <100cc/Hr -Fluid restriction 2 L/D benefits CHF with hypernatremia -consults ordered respiratory therapy. -prevention vaccine-recommend seasonal flu vaccine, shingles vaccine, and pneumonia vaccine 2. Elevated TSH, acute, present on admission -will repeat TSH with reflex T4 in the a.m., with physical re-evaluation. 3. Dysuria likely secondary to prostate cancer and ongoing chemotherapy treatment, acute on chronic, present on admission -urinalysis in ED was negative, ordered urine culture for clarification, provided peridium for patient comfort -condom catheter in place at this time -ordered peridium t.i.d. for discomfort -continue patient's Bicalutamide, dexamethasone 4. Hypertension, essential, acute on chronic, present on admission -as evidence by a admit BP 152/86 -continue patient's losartan and carvedilol 5. GERD, chronic, present on admission -continue patient's omeprazole 6. Anxiety, chronic, present on admission -continue patient's duloxetine, Remeron Code status: Full code Surrogate decision maker: Nati Dey COVID PCR: Negative COVID vaccination: Moderna 01/2021 DVT/VTE prophylaxis: Lovenox 40 mg and SCDs Estimated length of stay: Greater than 2 midnight Scores GCS Juliocesar coma scale eye opening: Spontaneous Juliocesar coma scale verbal response: Orientated [place] coma scale motor response: Obey commands Juliocesar coma scale total score: 15 ABCD2 Age >= 60 years: no Initial BP. Either SBP >= 140 or DBP >= 90.: no SOFA PaO2/FIO2: < 300 mmHg Platelets: < 50 Bilirubin: 1.2-1.9 mg/dL Hypotension: MAP >= 70 mmHg [place] Coma Scale: 15 Renal: < 1.2 mg/dL SOFA Score: 6 Wells' Criteria for PE Clinical signs and symptoms of DVT: No PE is #1 Dx or equally likely: No Heart rate > 100: Yes Immobilization at least 3 days or surg in previous 4 weeks: No History of PE or DVT: No Hemoptysis: No Malignancy w/Treatment within 6 months or palliative: Yes Wells' PE Score total: 2.5 Quality VTE Deep Vein Thrombosis/Pulmonary Embolism Present on Admission: No
[2021-05-17] MEDS: SENNOSIDES 8.6 MG TABLET 17.2 MG PO (22:29)
--- NOTE | 2021-05-17 23:10 | PC.NURSE ---
Admit/Evening Shift Note- Patient arrived to room via stretcher from ER at 1725. Patient alert and oriented and able to make needs known to staff. Admit questions done, medications reviewed by ER nurse, Physical assessment done, and skin check completed. Patient oriented to bed and bed controls, room, lights, phone, menu, bathroom, and call pringle/tv remote. Chemo precautions in palace. Safety measures on place. Patient agrees to call for assistance. Bed alarm activated. Call pringle and phone within reach. Will continue to monitor.
[2021-05-17] MEDS: MAGNESIUM SULFATE 2 GM/50 ML PIGGYBACK IV (23:18)
[2021-05-18] VITALS (31 sets, daily range): BP systolic 76–118; BP diastolic 42–80; PULSE 75–113; RESP 17–24; TEMP 35.7–36.3; O2SAT 93–100
[2021-05-18] MEDS: diphenhydrAMINE 25 MG TABLET PO (00:04)
[2021-05-18 04:15] LABS: Adenovirus Not Detected (Not Detect); B. parapertussis Not Detected (Not Detecte); Bordetella pertussis Not Detected (Not Detecte); Chlamydophila pneumoniae Not Detected (Not Detect); Coronavirus 229E Not Detected (Not Detect); Coronavirus HKU1 Not Detected (Not Detect); Coronavirus NL 63 Not Detected (Not Detect); Coronavirus OC43 Not Detected (Not Detect); Human Metapneumovirus Not Detected (Not Detect); Human Rhinovirus/Enterovirus Not Detected (Not Detect); Influenza A Not Detected (Not Detect); Influenza B Not Detected (Not Detect); Mycoplasma pneumoniae Not Detected (Not Detect); Parainfluenza Virus 1 Not Detected (Not Detect); Parainfluenza Virus 2 Not Detected (Not Detect); Parainfluenza Virus 3 Not Detected (Not Detect); Parainfluenza Virus 4 Not Detected (Not Detect); Respiratory Syncytial Virus Not Detected (Not Detect); SARS- CoV-2 Not Detected (Not Detecte)
[2021-05-18] MEDS: PANTOPRAZOLE DR 20 MG TABLET PO (06:26)
[2021-05-18] MEDS: MAGNESIUM HYDROXIDE 30 ML UDC PO (06:28)
[2021-05-18 06:36] LABS: Hematocrit 31.1 % (41-53); Hemoglobin 10.6 g/dL (13.5-17.5); Mean Corpuscular HGB Conc 34.1 % (30-36); Mean Corpuscular Hemoglobin 36.4 PG (26-34); Mean Corpuscular Volume 106.5 fL (80-100); Red Blood Cell Count 2.92 X10^6/uL (4.5-5.9); White Blood Cell Count 9.9 X10^3/uL (4.5-11.0)
[2021-05-18 06:42] LABS: INR 1.2 (0.9-1.3); Prothrombin Time 13.9 SECONDS (10.1-12.7)
[2021-05-18 06:46] LABS: Add Manual Diff / Slide Review YES; Platelet Count 29 X10^3/uL (150-400)
[2021-05-18 06:47] LABS: Alanine Aminotransferase 29 IU/L (<50); Albumin 3.4 g/dL (3.5-5.0); Alkaline Phosphatase 305 U/L (38-126); Aspartate Aminotransferase 47 IU/L (17-59); Bilirubin Total 1.5 mg/dL (0.2-1.3); Blood Urea Nitrogen 30 mg/dL (9-20); Calcium 9.3 mg/dL (8.4-10.2); Carbon Dioxide 27 mmol/L (22-32); Chloride 95 mmol/L (98-107); Cholesterol 143 mg/dL (140-199); Estimated Glomerular Filt Rate > 60.0 mL/min (>60); Globulin 3.3 g/dL (1.7-4.1); Glucose 132 mg/dL (80-110); HDL Cholesterol 24 mg/dL (40-60); HEMOLYSIS < 15 (0-50); LDL Cholesterol Calculated 89 mg/dL (<100); Potassium 3.5 mmol/L (3.4-5.1); Sodium 130 mmol/L (137-145); Total Protein 6.7 g/dL (6.3-8.2); Triglycerides 148 mg/dL (35-150)
[2021-05-18 06:55] LABS: NT-proBNP (BNP-Adult 18+) 1840 pg/mL (<125)
[2021-05-18 07:18] LABS: TSH w/ Reflex to FT4 2.92 uIU/mL (0.47-4.68)
[2021-05-18 08:01] LABS: Neutrophils Absolute Manual 5247 /uL (3000-5900); Nucleated Red Blood Cells 13 #/Diff; Total Cells Counted 100
[2021-05-18 08:02] LABS: Polychromasia 3+
[2021-05-18 08:03] LABS: Anisocytosis 1+
[2021-05-18 08:04] LABS: Macrocytosis 3+; Platelet Estimate Decreased on smear
[2021-05-18] MEDS: BUDESONIDE 0.5 MG/2 ML NEB INH ×2 (08:07→21:27)
[2021-05-18] MEDS: MIRTAZAPINE 15 MG TABLET PO (09:20)
[2021-05-18] MEDS: PHENAZOPYRIDINE 100 MG TABLET PO ×3 (09:20→20:43)
[2021-05-18] MEDS: DULOXETINE 30 MG CAPSULE PO (09:20)
[2021-05-18] MEDS: ASPIRIN EC 81 MG TABLET PO (09:20)
[2021-05-18] MEDS: carvediloL 12.5 MG TABLET PO (09:21)
[2021-05-18] MEDS: SODIUM CHLORIDE 0.9% FLUSH 10 ML IV ×2 (09:21→20:44)
[2021-05-18] MEDS: dexAMETHasone 1 MG TABLET 2 MG PO (09:36)
[2021-05-18] MEDS: FUROSEMIDE 20 MG/2 ML VIAL IV (09:36)
--- NOTE | 2021-05-18 11:51 | PC.NURSE ---
Addendum entered by Fouzia Beltrán R.N. 05/18/21 15:17: Weaned from 2L to 1L, on reassessment weaned to RA, sats 95%, no change in respiratory status. Dr. Segundo aware. Original Note: Day shift note: Awake, alert, and pleasantly cooperative. Large BM this shift. Continue on O2 at 2L via humidified NC, O2 sat between 94-98%. Condom catheter in place, clear orange urine. C/O dysuria, states imrpoving. Continue on fluid restrictions as ordered. SOB at rest, worse with activity. Speaking in short sentences. Diffuse jose martin [facility] noted. States breathing effort has significantly improved from previous day. SCD's in palce while in bed. Call light within reach.
--- NOTE | 2021-05-18 14:12 | CM.IDA ---
Initial DCP Assessment Note Pt is a 65 yo male, resident of [place], arrives w/possible blood clot, sent by PCP, blomissy clot ruled out, Dr Segundo suspects acute resp failure-CHF. patient w/ PMH to include stage IV metastatic prostate cancer, undergoing daily oral chemotherapy regimen which started in February 2021, managed by Dr. Mayen @ [facility]. PCP: Marita Orozco Payer: [facility] A/Kathyce (through spouse's employer) Reviewed chart, met w/patient and his Nati, introduced role. Patient is mostly indp. at baseline but does fatigue quickly. Nati works for [employer] and has been on a temporary leave to manage patient's care needs as he goes through treatment for his prostate cancer. Nati plans to return to work soon and patient's sister (a retired RN, living in [place]) plans to come stay w/patient/spouse to assist. Spouse Nati plans to take patient home upon DC; discussed HH (?) patient/spouse unsure at this time if patient will require upon DC. Spouse Nati quite concerned about the cost of this observation stay since she did not get patient signed up for MCR A+B, only A. Ravi pays 80% for outpatient visits. Explained that patient's [employer] coverage would be billed. In addition, when bill arrives w/any out of pocket expense, spouse can request a payment plan and also complete a flores application if unable to pay. Spouse appreciative for the information Plan: DC home w/family, r/o need for HH (?) Likely no additional needs, family to transport home CANDELARIA Davenport Discharge Planning/Care Management CM Discharge Assessment Start: 05/18/21 14:04 Freq: Status: Active Protocol: Document 05/18/21 14:04 MANNIE (Rec: 05/18/21 14:12 MANNIE [id number]) Discharge Planning Assessment Assigned Rewind Operator CANDELARIA Chung DPOA/Assigned Designee Name Nati Hercules, spouse Contact Information [phone] Advance Directives? No Advance Directives on File No History Provided By Patient,Significant Other Prior Living Arrangements House Household Members spouse Willing to Return to Facility? No Independent with ADL's Yes: Mostly, spouse assist w/ higher ADLs Is patient alert and oriented? Yes Needs Assistance With Meal Prep,Managing Medications ,Home Chores / Shopping Comment Home, spouse unsure if HH is needed at this time Barriers to Discharge No Comment Spouse plans to take patient home, sister in [place] offering to assist in patient' s care Discharge Plan Home Transportation Arrangement Family Referrals Initiated None needed Additional Comment r/o HH upon DC (?)
--- NOTE | 2021-05-18 15:52 | PC.NURSE ---
Addendum entered by Karen Kong R.N. 05/18/21 22:56: Urinary output this shift 50 cc/s. Condom cath in place. Bladder scanned for 422 cc/s. Admits to feeling bladder fullness with placement of bladder scanner wand. Informed CALLUM Iyer. Addendum entered by Karen Kong R.N. 05/18/21 21:12: Per CALLUM Iyer, notify if MAP < 65. MAP 56 with BP 81/42 and HR 100. Pt semi reclined in bed awake, alert, eating ice cream. Orders received to gently bolus 250 cc/s normal saline. Addendum entered by Karen Kong R.N. 05/18/21 20:31: Room air 95%. CALLUM Iyer in to see patient and observe blood pressure trends this evening. Pt is quite conversant without any significant shortness of breath. Condom cath monitored and intact. Addendum entered by Karen Kong R.N. 05/18/21 19:25: Bolus completed. Antibiotics infusing as ordered. Lab in to draw blood as ordered. Addendum entered by Karen Kong R.N. 05/18/21 19:14: Pt's systolic BP 77. Pt remains awake, alert, conversant. Dr. Segundo informed. R.T. in to perform stat EKG per Dr. Segundo although pt does not c/o chest pain. 500 cc normal saline bolus in progress as per Dr. Segundo. Okay to run in as quickly as possible per Dr. Segundo. Pump set @ 999 cc/hr for 500 cc's. Addendum entered by Karen Kong R.N. 05/18/21 16:26: RADIO INTERFERENCE INVESTIGATOR reports vital signs to this marketing copywriter with pt's systolic pressure in the upper 70's. This marketing copywriter entered room and pt remains conversant, awake and alert. BP on left upper arm 86/53 with HR 96 and BP on right upper arm 82/53 with HR 94. Pt denies dizziness or lightheadedness. Dr. Segundo was immediately informed. Original Note: Pt awake, alert resting quietly in bed watching television. Denies pain, slight dyspnea noted with conversation. Diminished breath sounds posterior right lower lobe. Room air 93-95% per continuous pulse oximeter. Condom catheter in place with orange colored urine draining to large rodriguez bag. Pt's spouse remains attentive @ bedside. Pt refuses to wear scd's and was provided with rationale for these devices. Encouraged ankle waving and calf pumping while in bed. Reinforced to pt and pt's spouse pt not to attempt out of bed without calling for staff to assist. Bed alarm in place.
--- NOTE | 2021-05-18 17:52 | PM.PN.1 ---
Subjective Subjective Interval history: 65-year-old male admitted to the hospital for acute hypoxia. He initially was felt to have a possible PE which was ruled out. CT showed some ground-glass opacities. The patient initially required high-flow oxygen. He received Lasix in the emergency room was tachycardic but had some improvement. He is tolerating room air oxygenation. He is afebrile. His blood pressure somewhat low. Patient feels somewhat weak Exam Vital Signs (past 8 hours): - 05/18/21 13:00 05/18/21 13:06 05/18/21 15:55 Temperature 97.4 F L 96.6 F L Pulse Rate 77 94 H Respiratory Rate 18 17 Blood Pressure 105/68 79/53 L Pulse Oximetry 96 98 94 05/18/21 15:57 05/18/21 16:29 05/18/21 16:30 Temperature Pulse Rate 96 H 94 H Respiratory Rate Blood Pressure 86/53 L 82/53 L Pulse Oximetry 93 05/18/21 17:06 Temperature Pulse Rate Respiratory Rate Blood Pressure 88/47 L Pulse Oximetry Oxygen Delivery Method Room Air Oxygen Flow Rate 0 Narrative Exam Narrative: Chronically ill-appearing male Resp Other: Lungs: Decreased breath sounds with crackles at the bases bilaterally Cardio Other: Cardiac exam: Regular rate and rhythm normal S1-S2 GI Other: Abdomen soft nontender nondistended Extrem Other: Extremities trace edema Objective Labs Result Diagrams: 05/18/21 06:03 05/18/21 06:03 Labs: Laboratory Results - last 24 hr 05/17/21 05/17/21 05/17/21 18:45 18:45 18:45 WBC RBC Hgb Hct MCV MCH MCHC RDW Plt Count Neut % (Auto) Lymph % (Auto) [place] % (Auto) Eos % (Auto) Baso % (Auto) Lymph # (Auto) [place] # (Auto) Baso # (Auto) Total Counted Seg Neutrophils % Band Neutrophils % Lymphocytes % (Manual) Atypical Lymphs % Monocytes % (Manual) Metamyelocytes % Myelocytes % Neutrophils # (Manual) Nucleated RBCs Platelet Estimate RBC Morphology Polychromasia Anisocytosis Macrocytosis PT INR VBG pH VBG pCO2 VBG pO2 VBG HCO3 VBG Total CO2 VBG O2 Saturation VBG Base Excess Sodium Potassium Chloride Carbon Dioxide BUN Creatinine Estimated GFR BUN/Creatinine Ratio Glucose Calcium Magnesium 1.4 L Total Bilirubin AST ALT Alkaline Phosphatase Troponin I < 0.012 NT-Pro-B Natriuret Pep Total Protein Albumin Globulin Albumin/Globulin Ratio Triglycerides Cholesterol LDL Cholesterol, Calc HDL Cholesterol TSH 5.98 H Chlamy pneumoniae PCR Adenovirus (PCR) B. pertussis DNA (PCR) B.parapertussis DNA PCR Coronavirus OC43 (PCR) Coronavirus HKU1 (PCR) Coronavirus 229E (PCR) SARS-CoV-2 (PCR) Coronavirus NL63 (PCR) Human Metapneumovir PCR Influenza Type A (PCR) Influenza Type B (PCR) M. pneumoniae (PCR) Parainfluenza 1 (PCR) Parainfluenza 2 (PCR) Parainfluenza 3 (PCR) Parainfluenza 4 (PCR) RSV (PCR) Entero/Rhino (PCR) 05/17/21 05/17/21 05/18/21 21:33 21:35 03:00 WBC RBC Hgb Hct MCV MCH MCHC RDW Plt Count Neut % (Auto) Lymph % (Auto) [place] % (Auto) Eos % (Auto) Baso % (Auto) Lymph # (Auto) [place] # (Auto) Baso # (Auto) Total Counted Seg Neutrophils % Band Neutrophils % Lymphocytes % (Manual) Atypical Lymphs % Monocytes % (Manual) Metamyelocytes % Myelocytes % Neutrophils # (Manual) Nucleated RBCs Platelet Estimate RBC Morphology Polychromasia Anisocytosis Macrocytosis PT INR VBG pH 7.52 H VBG pCO2 34.4 L VBG pO2 72 H VBG HCO3 28 VBG Total CO2 29 VBG O2 Saturation 96 H VBG Base Excess 5.0 H Sodium Potassium Chloride Carbon Dioxide BUN Creatinine Estimated GFR BUN/Creatinine Ratio Glucose Calcium Magnesium Total Bilirubin AST ALT Alkaline Phosphatase Troponin I < 0.012 NT-Pro-B Natriuret Pep Total Protein Albumin Globulin Albumin/Globulin Ratio Triglycerides Cholesterol LDL Cholesterol, Calc HDL Cholesterol TSH Chlamy pneumoniae PCR Not detected Adenovirus (PCR) Not detected B. pertussis DNA (PCR) Not detected B.parapertussis DNA PCR Not detected Coronavirus OC43 (PCR) Not detected Coronavirus HKU1 (PCR) Not detected Coronavirus 229E (PCR) Not detected SARS-CoV-2 (PCR) Not detected Coronavirus NL63 (PCR) Not detected Human Metapneumovir PCR Not detected Influenza Type A (PCR) Not detected Influenza Type B (PCR) Not detected M. pneumoniae (PCR) Not detected Parainfluenza 1 (PCR) Not detected Parainfluenza 2 (PCR) Not detected Parainfluenza 3 (PCR) Not detected Parainfluenza 4 (PCR) Not detected RSV (PCR) Not detected Entero/Rhino (PCR) Not detected 05/18/21 05/18/21 05/18/21 06:03 06:03 06:03 WBC 9.9 RBC 2.92 L Hgb 10.6 L Hct 31.1 L MCV 106.5 H MCH 36.4 H MCHC 34.1 RDW 19.0 H Plt Count 29 L* Neut % (Auto) Not Reportable Lymph % (Auto) Not Reportable [place] % (Auto) Not Reportable Eos % (Auto) Not Reportable Baso % (Auto) Not Reportable Lymph # (Auto) Not Reportable [place] # (Auto) Not Reportable Baso # (Auto) Not Reportable Total Counted 100 Seg Neutrophils % 41.0 Band Neutrophils % 12.0 H Lymphocytes % (Manual) 28.0 Atypical Lymphs % 2.0 H Monocytes % (Manual) 8.0 Metamyelocytes % 1.0 H Myelocytes % 8.0 H Neutrophils # (Manual) 5247 Nucleated RBCs 13 H Platelet Estimate Decreased on smear RBC Morphology Not Reportable Polychromasia 3+ H Anisocytosis 1+ H Macrocytosis 3+ H PT 13.9 H INR 1.2 VBG pH VBG pCO2 VBG pO2 VBG HCO3 VBG Total CO2 VBG O2 Saturation VBG Base Excess Sodium Potassium Chloride Carbon Dioxide BUN Creatinine Estimated GFR BUN/Creatinine Ratio Glucose Calcium Magnesium Total Bilirubin AST ALT Alkaline Phosphatase Troponin I NT-Pro-B Natriuret Pep Total Protein Albumin Globulin Albumin/Globulin Ratio Triglycerides Cholesterol LDL Cholesterol, Calc HDL Cholesterol TSH 2.92 Chlamy pneumoniae PCR Adenovirus (PCR) B. pertussis DNA (PCR) B.parapertussis DNA PCR Coronavirus OC43 (PCR) Coronavirus HKU1 (PCR) Coronavirus 229E (PCR) SARS-CoV-2 (PCR) Coronavirus NL63 (PCR) Human Metapneumovir PCR Influenza Type A (PCR) Influenza Type B (PCR) M. pneumoniae (PCR) Parainfluenza 1 (PCR) Parainfluenza 2 (PCR) Parainfluenza 3 (PCR) Parainfluenza 4 (PCR) RSV (PCR) Entero/Rhino (PCR) 05/18/21 06:03 WBC RBC Hgb Hct MCV MCH MCHC RDW Plt Count Neut % (Auto) Lymph % (Auto) [place] % (Auto) Eos % (Auto) Baso % (Auto) Lymph # (Auto) [place] # (Auto) Baso # (Auto) Total Counted Seg Neutrophils % Band Neutrophils % Lymphocytes % (Manual) Atypical Lymphs % Monocytes % (Manual) Metamyelocytes % Myelocytes % Neutrophils # (Manual) Nucleated RBCs Platelet Estimate RBC Morphology Polychromasia Anisocytosis Macrocytosis PT INR VBG pH VBG pCO2 VBG pO2 VBG HCO3 VBG Total CO2 VBG O2 Saturation VBG Base Excess Sodium 130 L Potassium 3.5 D Chloride 95 L Carbon Dioxide 27 BUN 30 H Creatinine 0.91 Estimated GFR > 60.0 BUN/Creatinine Ratio 33.0 H Glucose 132 H Calcium 9.3 Magnesium Total Bilirubin 1.5 H AST 47 ALT 29 Alkaline Phosphatase 305 H Troponin I NT-Pro-B Natriuret Pep 1840 H Total Protein 6.7 Albumin 3.4 L Globulin 3.3 Albumin/Globulin Ratio 1.0 Triglycerides 148 Cholesterol 143 LDL Cholesterol, Calc 89 HDL Cholesterol 24 L TSH Chlamy pneumoniae PCR Adenovirus (PCR) B. pertussis DNA (PCR) B.parapertussis DNA PCR Coronavirus OC43 (PCR) Coronavirus HKU1 (PCR) Coronavirus 229E (PCR) SARS-CoV-2 (PCR) Coronavirus NL63 (PCR) Human Metapneumovir PCR Influenza Type A (PCR) Influenza Type B (PCR) M. pneumoniae (PCR) Parainfluenza 1 (PCR) Parainfluenza 2 (PCR) Parainfluenza 3 (PCR) Parainfluenza 4 (PCR) RSV (PCR) Entero/Rhino (PCR) [facility] Medical History (Updated 05/17/21 @ 22:42 by SHAHZAD Beal) Benign essential HTN Chemotherapy-induced fatigue GERD (gastroesophageal reflux disease) Prostate cancer Surgical History (Updated 05/17/21 @ 22:42 by SHAHZAD Beal) History of cataract surgery History of detached retina repair Family History (Updated 05/17/21 @ 22:43 by SHAHZAD Beal) Mother Hypertension Sister Diabetes mellitus Social History household members: spouse Smoking Status: Former smoker alcohol intake: current Assessment & Plan Assessment & Plan narrative: 1. Acute hypoxic respiratory failure, present on admission -patient sent in for possible PE, however CTA negative for pulmonary embolus. This showed patchy bilateral ground-glass opacities. -patient had a negative SARs COVID to test, consider repeating today -patient received IV Lasix for possible heart failure, he is now hypotensive, Doubt significant heart failure -cardiac echo ordered and pending -will discontinue IV Lasix, losartan ( given hypotension -will obtain procalcitonin, given his immunocompromised state from his chemotherapy and chronic steroids will start him empirically on antibiotics -will taper oxygen as tolerated 2. Thrombocytopenia -likely secondary to chemotherapy -SCDs, no anticoagulant given low platelet count, consider treatment when platelet count greater than 50 3. Hypertension -patient is currently hypotensive, will hold losartan and JONNY-inhibitor as above, hold Coreg as well 4 GERD -continue PPI 5. Anxiety -continue usual home medication Quality VTE Deep Vein Thrombosis/Pulmonary Embolism Present on Admission: No
[2021-05-18 18:26] LABS: Procalcitonin 0.57 ng/mL (<0.5)
[2021-05-18] MEDS: SODIUM CHLORIDE 0.9% 500 ML 999 ML IV (18:51)
[2021-05-18] MEDS: PIPERACILLIN/TAZO 3.375 GM in SODIUM CHLORIDE 0.9% 100 ML 25 ML IV (19:13)
[2021-05-18 19:46] LABS: Creatine Kinase < 20 U/L (55-170)
[2021-05-18 19:57] LABS: COVID19 - ADMIT (NP swab/PCR) Negative (Negative)
[2021-05-18 19:59] LABS: Troponin I < 0.012 ng/mL (0.01-0.034)
[2021-05-18] MEDS: SENNOSIDES 8.6 MG TABLET 17.2 MG PO (20:43)
[2021-05-18] MEDS: SODIUM CHLORIDE 0.9% 250 ML IV (21:28)
[2021-05-18] MEDS: SODIUM CHLORIDE 0.9% 250 ML 21 ML IV (22:51)
[2021-05-19] VITALS (13 sets, daily range): BP systolic 115–162; BP diastolic 66–80; PULSE 78–94; RESP 14–18; TEMP 35.8–36.8; O2SAT 94–98
[2021-05-19] MEDS: PIPERACILLIN/TAZO 3.375 GM in SODIUM CHLORIDE 0.9% 100 ML 25 ML IV ×3 (03:00→18:49)
[2021-05-19] MEDS: PANTOPRAZOLE DR 20 MG TABLET PO (05:31)
[2021-05-19 06:01] LABS: Basophils Absolute Auto 100 /uL (0-100); Basophils Percent Auto 0.6 % (0-2); Eosinophils Absolute Auto 0 /uL (0-450); Eosinophils Percent Auto 0.5 % (2-4); Hematocrit 27.9 % (41-53); Hemoglobin 9.5 g/dL (13.5-17.5); Lymphocytes Absolute Auto 2000 /uL (1100-4500); Lymphocytes Percent Auto 19.7 % (25-40); Mean Corpuscular HGB Conc 34.1 % (30-36); Mean Corpuscular Hemoglobin 36.7 PG (26-34); Mean Corpuscular Volume 107.6 fL (80-100); Monocytes Absolute Auto 800 /uL (0-900); Monocytes Percent Auto 7.9 % (3-14); Neutrophils Absolute Auto 7200 /uL (1500-7000); Neutrophils Percent Auto 71.3 % (50-75); Red Blood Cell Count 2.59 X10^6/uL (4.5-5.9); Red Cell Distribution Width 18.5 % (11.6-14.8)
[2021-05-19 06:09] LABS: Alanine Aminotransferase 25 IU/L (<50); Albumin 3.1 g/dL (3.5-5.0); Alkaline Phosphatase 336 U/L (38-126); Aspartate Aminotransferase 39 IU/L (17-59); Blood Urea Nitrogen 40 mg/dL (9-20); Calcium 9.2 mg/dL (8.4-10.2); Carbon Dioxide 27 mmol/L (22-32); Chloride 100 mmol/L (98-107); Estimated Glomerular Filt Rate > 60.0 mL/min (>60); Globulin 3.2 g/dL (1.7-4.1); Glucose 120 mg/dL (80-110); HEMOLYSIS 17 (0-50); Potassium 3.9 mmol/L (3.4-5.1); Sodium 134 mmol/L (137-145); Total Protein 6.3 g/dL (6.3-8.2)
[2021-05-19 06:21] LABS: Platelet Count 28 X10^3/uL (150-400)
[2021-05-19 06:22] LABS: Add Manual Diff / Slide Review SLIDE REVIEW
[2021-05-19 07:18] LABS: Anisocytosis 1+; Platelet Estimate Decreased on smear
[2021-05-19] MEDS: BUDESONIDE 0.5 MG/2 ML NEB INH ×2 (08:14→19:39)
[2021-05-19] MEDS: ASPIRIN EC 81 MG TABLET PO (10:13)
[2021-05-19] MEDS: DULOXETINE 30 MG CAPSULE PO (10:13)
[2021-05-19] MEDS: dexAMETHasone 1 MG TABLET 2 MG PO (10:13)
[2021-05-19] MEDS: MIRTAZAPINE 15 MG TABLET PO (10:13)
[2021-05-19] MEDS: PHENAZOPYRIDINE 100 MG TABLET PO ×3 (10:13→20:23)
[2021-05-19] MEDS: SODIUM CHLORIDE 0.9% FLUSH 10 ML IV (10:14)
[2021-05-19] MEDS: BICALUTAMIDE 50 MG TABLET PO (10:14)
--- NOTE | 2021-05-19 14:31 | PT.IIE ---
Medical History (Last Updated 05/17/21 @ 22:42 by Zoie Iyer, [facility]) Benign essential HTN Chemotherapy-induced fatigue GERD (gastroesophageal reflux disease) Prostate cancer Physical Therapy Inpatient Evaluation/Re-Eval M1 PT/OT-IP Prior Functional Status Start: 05/19/21 16:07 Freq: NEEDED Status: Active Protocol: Document 05/19/21 14:31 AB (Rec: 05/19/21 16:27 AB [id number]) Medical Review Prior Functional Status Medical History Reviewed Yes Communication able to make needs known Mobility and Gait pt stated that he is independent with all mobilities and ambulation without AD Prior Functional Level (Other details) h/o fall last february per spouse Social History Household Members spouse Living Arrangements House Number of Floors (Floors) One Floor Number of Stairs To Enter/Railing? 10 steps to enter with B rails Home Environment Standard Height Toilet,High Toilet,Tub/Shower Home Equipment Grab Bars Near Toilet Additional Social History Comment pt's sister from [place] will be coming in [facility] and assist pt at home. sister is a nurse per pt M2 PT-IP Current Condition Start: 05/19/21 16:07 Freq: NEEDED Status: Active Protocol: Document 05/19/21 14:31 AB (Rec: 05/19/21 16:27 AB [id number]) Physical Therapy Current Condition Current Condition Evaluation Date 05/19/21 Treatment Diagnosis hypoxic respiratory failure; prostate CA; difficulty in walking Onset Date 05/17/21 Precautions Other Precautions O2 sat, falls, chemo prec. M3 PT-IP Subjective Start: 05/19/21 16:07 Freq: NEEDED Status: Active Protocol: Document 05/19/21 14:31 AB (Rec: 05/19/21 16:27 AB [email or web address]) Subjective Physical Therapy Visit Type Type Initial Evaluation Visit Start Time 14:31 Visit Stop Time 15:40 Total Visit Minutes 69 Number of DRAPERY COUNSELOR Visits 0 Physical Therapy Visit Comments Patient Comments agreeable to do PT Therapy Pain Assessment Pain When Pain Assessed w/urinatio Pain Present Pain Present Pain Reported Location Groin Scale Used with urination M4 PT-IP Mobility and Gait Start: 05/19/21 16:07 Freq: NEEDED Status: Active Protocol: Document 05/19/21 14:31 AB (Rec: 05/19/21 16:27 AB [id number]) PT-Bed Mobility Assessment Supine to Sit Supine to Sit Standby Assistance,Bedrails PT-Transfer Assessment Sit to and From Stand Sit to and from Stand Standby Assistance,Contact Guard Assistance,1 Person Assistance,Use of Upper Extremities Equipment Transfer Assistive Device Gait Belt,Front Wheeled Walker Orthotic/Prosthetic Devices or Brace: No Transfers Transfer Destination Chair Transfer Technique Stand Step Pivot Transfer Ability Level of Assist Standby Assistance,Contact Guard Assistance,1 Person Assistance,Use of Upper Extremities Comments Mobility Comments pt supine in bed and spouse in room. o2 sat monitored. O2 sat at room air: 96-97% pt completed supine to sit SBA and uses bed rail to assist. presents with difficulty completing task and requiring increase time to complete. pt was able to sit on EOB SBA. O2 sat: 95-96%. completed sit to stand CGA and ambulated in room CGA using FWW ~ 20ft. (+) SOB and instructed to sit down. O2 sat checked 89-91%. pt rested and agreed to ambulate towards the stair. ambulated using FWW ~ 75ft SBA to CGA. O2 sat: 90-91%. pt completed up/down stairs using B rails CGA. O2 sat after stair climbin%. instructed with deep breathing . increased to 88% in ~ 30 sec and 91% after ~ 20 sec. assisted pt back to his room. ambulated from w/c to chair using FWW CGA. positioned on chair. call light and table placed within reach. pt and spouse informed regarding equipement needs. informed pt regarding use of FWW at this time and pt/spouse wanted one dispensed to them from [employer]. will ask for doctor's order and will dispense to pt. Gait Assessment Gait Gait Assistance Required: Standby Assistance,Contact Guard Assist,1 Person Assist Distance (Feet) 75 Able to Maintain Weight Bearing Status No During Gait Assistive Devices Assistive Device Gait Belt,Front Wheeled Walker Orthotic/Prosthetic Devices or Brace: No Gait Deviations General Gait Pattern Decreased Stride Length, Decreased Feet Clearance,Step- to Gait Factors Limiting Gait Function Factors Limiting Gait Function Decreased Activity Tolerance, Decreased Strength,Poor Balance,Poor Safety Awareness, Respiratory Distress Comments Gait Comments presents with decrease LE elevation and decrease step length Stair Climbing Assessment Evaluation Level of Assist On Stairs Contact Guard Assistance Devices Stair Climbing Assistive Devices Left Railing,Right Railing Technique/Endurance Stair Climbing Direction Ascend and Descend Stair Climbing Technique Step Over Step,Step to Step Number of Steps Climbed 3 Query Text: Stair Climbing Set # Repetitions (reps) 3 PT-Balance Assessment Sitting Balance and Reactions Static Sitting Balance Ability Good Dynamic Sitting Balance Ability Good Standing Balance and Reactions Static Standing Balance Ability Fair Dynamic Standing Balance Ability Fair Device Used FWW M5 PT-IP Objective Assessments Start: 05/19/21 16:07 Freq: NEEDED Status: Active Protocol: Document 05/19/21 14:31 AB (Rec: 05/19/21 16:27 AB [email or web address]) Orientation Orientation/Cognition Level of Alertness Alert Orientation Name,Place,Situation Language Function Ability Hard of Hearing Safety Awareness Decreased Safety Awareness Gross Range of Motion Lower Extremity ROM Assessment Within Functional Limits Strength Lower Extremity Strength Hip 4-/5 Knee 4-/5 Sensation Assessment Sensation Gross Sensation WNL Muscle Tone Muscle Tone WNL Yes M6 PT-IP Treatment Start: 05/19/21 16:07 Freq: NEEDED Status: Active Protocol: Document 05/19/21 14:31 AB (Rec: 05/19/21 16:27 [email or web address] Physical Therapy Treatment Education Education Provided Safety M7 PT-IP Assessment and Plan Start: 05/19/21 16:07 Freq: NEEDED Status: Active Protocol: Document 05/19/21 14:31 AB (Rec: 05/19/21 16:27 AB [email or web address]) PT Summary Assessment and Plan Potential Rehabilitation Potential Fair Status of Condition at Evaluation Evolving Summary Impairments Pain,ROM,Strength,Balance, Coordination,Sensation,Tone, Cognition,Bed Mobility, Transfers,Gait,Activity Tolerance Assessment Summary pt requiring SBA to CGA with mobility using FWW. presents with decrease activity tolerance affecting mobility level and safety. pt with decrease in O2 sat at room air from 96-97% at rest to 89-91 % with ambulation and 86% with stair climbing and requires > 30 sec to recover to 91%. pt plans to go home and will have his sister to assist him at home. pt stated that his sister is a nurse. pt will benefit from HHPT. Requested orders for FWW for home use. Goals Bed Mobility Goal Independent Transfer Goal Independent,Front Wheeled Walker Gait Goal Independent,Front Wheel Walker Gait Distance 100 Other Goals up/down 10 step B rails SBa Days to Meet Goals 5 Frequency of Treatment Frequency Of Treatment Once a Day Treatment Plan Physical Therapy Treatment Plan Bed Mobility Training,Transfer Training,Gait Training, Therapeutic Exercise,Balance Retraining,Discharge Planning, Neuromuscular Re-ed, Coordination Retraining Precautions Other Precautions O2 sat; falls; chemo prec. Recommendations To Nursing Amount of Assist Needed 1 Person Assist Discharge Recommendations PT Discharge Recommendations Home with 24/7 Assist Available,Home Health Equipment Needed for Home Before FWW Discharge Transportation Needs at Discharge Private Vehicle
--- NOTE | 2021-05-19 16:10 | P.PN_ITS ---
Subjective Subjective Interval history: Patient has no complaints. He denies shortness of breath at rest. Overall making good progress Exam Vital Signs (past 8 hours): - 05/19/21 08:16 05/19/21 08:23 05/19/21 11:30 Temperature 98.2 F 98.0 F Pulse Rate 79 82 86 Respiratory Rate 18 15 16 Blood Pressure 162/80 H 115/66 Pulse Oximetry 96 97 98 Oxygen Delivery Method Room Air Oxygen Flow Rate 0 Narrative Exam Narrative: ill appearing male lying in bed in no acute distress Resp Other: Decreased breath sounds no crackles rhonchi or wheezing Cardio Other: RRR nl Sl S2 2/6 TERRI GI Other: Soft/ nontender/ non distended. no palpable masses Skin Other: Multiple Ecchymoses of the upper extremities Extrem Other: No edema Objective Labs Result Diagrams: 05/19/21 05:40 05/19/21 05:40 Labs: Laboratory Results - last 24 hr 05/18/21 05/18/21 05/18/21 06:03 19:06 19:25 WBC RBC Hgb Hct MCV MCH MCHC RDW Plt Count Neut % (Auto) Lymph % (Auto) [place] % (Auto) Eos % (Auto) Baso % (Auto) Neut # (Auto) Lymph # (Auto) [place] # (Auto) Eos # (Auto) Baso # (Auto) Platelet Estimate RBC Morphology Anisocytosis Sodium Potassium Chloride Carbon Dioxide BUN Creatinine Estimated GFR BUN/Creatinine Ratio Glucose Calcium Total Bilirubin AST ALT Alkaline Phosphatase Total Creatine Kinase < 20 L CK-MB (CK-2) TNP CK-MB (CK-2) Rel Index TNP Troponin I < 0.012 Total Protein Albumin Globulin Albumin/Globulin Ratio Procalcitonin 0.57 H SARS-CoV-2 (PCR) Negative 05/19/21 05/19/21 05:40 05:40 WBC 10.0 RBC 2.59 L Hgb 9.5 L Hct 27.9 L MCV 107.6 H MCH 36.7 H MCHC 34.1 RDW 18.5 H Plt Count 28 L* Neut % (Auto) 71.3 Lymph % (Auto) 19.7 L [place] % (Auto) 7.9 Eos % (Auto) 0.5 L Baso % (Auto) 0.6 Neut # (Auto) 7200 H Lymph # (Auto) 2000 [place] # (Auto) 800 Eos # (Auto) 0 Baso # (Auto) 100 Platelet Estimate Decreased on smear RBC Morphology Not Reportable Anisocytosis 1+ H Sodium 134 L Potassium 3.9 Chloride 100 Carbon Dioxide 27 BUN 40 H Creatinine 0.93 Estimated GFR > 60.0 BUN/Creatinine Ratio 43.0 H Glucose 120 H Calcium 9.2 Total Bilirubin 1.0 AST 39 ALT 25 Alkaline Phosphatase 336 H Total Creatine Kinase CK-MB (CK-2) CK-MB (CK-2) Rel Index Troponin I Total Protein 6.3 Albumin 3.1 L Globulin 3.2 Albumin/Globulin Ratio 1.0 Procalcitonin SARS-CoV-2 (PCR) [facility] Medical History (Updated 05/17/21 @ 22:42 by NATA Beal-EDER) Benign essential HTN Chemotherapy-induced fatigue GERD (gastroesophageal reflux disease) Prostate cancer Surgical History (Updated 05/17/21 @ 22:42 by NATA Beal-EDER) History of cataract surgery History of detached retina repair Family History (Updated 05/17/21 @ 22:43 by NATA Beal-EDER) Mother Hypertension Sister Diabetes mellitus Social History household members: spouse Smoking Status: Former smoker alcohol intake: current Assessment & Plan Assessment & Plan narrative: Acute hypoxic respiratory failure, present on admission -patient sent in for possible PE, however CTA negative for pulmonary embolus. This showed patchy bilateral ground-glass opacities. -patient had a negative SARs COVID to test, consider repeating today, repeat Sars Covid-2 is negative -patient received IV Lasix for possible heart failure, he is now hypotensive, -Given IV fluids, with improved blood pressure -hypoxia resolved at rest, patient continues to desaturate to 88-89% with activity, Patient may require home O2 for ambulation -Continue IV antibiotics until discharge -He is fairly weak as well, likely will need a walker at discharge Doubt significant heart failure -cardiac echo ordered and pending -will discontinue IV Lasix, losartan ( given hypotension) -will obtain procalcitonin, given his immunocompromised state from his chemotherapy and chronic steroids will start him empirically on antibiotics -will taper oxygen as tolerated 2. Thrombocytopenia/Anemia -likely secondary to chemotherapy -SCDs, no anticoagulant given low platelet count, consider treatment when platelet count greater than 50 3. Hypertension -patient is currently hypotensive, will hold losartan and JONNY-inhibitor as above, hold Coreg as well 4 GERD -continue PPI 5. Anxiety -continue usual home medication 6. Metastatic Prostate Cancer -CTA reveals sclerotic bony metastatic disease consistent with metastatic prostate cancer Disposition-Home tomorrow if no longer hypoxic with activity Quality VTE Deep Vein Thrombosis/Pulmonary Embolism Present on Admission: No
--- NOTE | 2021-05-19 17:18 | PC.NURSE ---
Addendum entered by Karen Kong R.N. 05/19/21 17:55: R.T. in to evaluate pt for home oxygen. Pt reports significant pain burning in nature with standing and with activity. Medicated as per emar. Addendum entered by Karen Kong R.N. 05/19/21 17:52: R.T. in to see patient and pt's sister Audelia (who is present and visiting from [place]). Original Note: Pt up with physical therapist in room and out of room to do stairs @ beginning of shift. Pt does admit to breathing a little faster with ambulation. Now back in bed for evening meal. Condom catheter inspected and in place. Urine is orange in color and draining without difficulty by gravity to large rodriguez bag. Pt denies pain. Follows commands appropriately. Faint wheezes to anterior klein BL. Room air 96%. Telemetry discontinued as ordered.
[2021-05-19] MEDS: OXYCODONE IR 5 MG TABLET PO ×2 (18:04→21:45)
[2021-05-19] MEDS: SENNOSIDES 8.6 MG TABLET 17.2 MG PO (20:22)
[2021-05-19] MEDS: carvediloL 12.5 MG TABLET PO (20:22)
[2021-05-19] MEDS: ACETAMINOPHEN 325 MG TABLET 650 MG PO (20:30)
[2021-05-20] VITALS: O2SAT 96
[2021-05-20] MEDS: PIPERACILLIN/TAZO 3.375 GM in SODIUM CHLORIDE 0.9% 100 ML 25 ML IV (03:09)
[2021-05-20 03:43] VITALS: BP 128/84; PULSE 79; RESP 18; TEMP 36.1; O2SAT 97
[2021-05-20 04:00] VITALS: O2SAT 97
[2021-05-20 05:44] LABS: Hematocrit 26.5 % (41-53); Mean Corpuscular Hemoglobin 36.6 PG (26-34); Mean Corpuscular Volume 107.7 fL (80-100); Red Blood Cell Count 2.46 X10^6/uL (4.5-5.9); Red Cell Distribution Width 18.5 % (11.6-14.8); White Blood Cell Count 8.7 X10^3/uL (4.5-11.0)
[2021-05-20 05:52] LABS: Alanine Aminotransferase 23 IU/L (<50); Albumin 2.9 g/dL (3.5-5.0); Albumin Globulin Ratio 0.9 (1.0-2.8); Alkaline Phosphatase 297 U/L (38-126); Aspartate Aminotransferase 39 IU/L (17-59); BUN Creatinine Ratio 39.7 (6-22); Bilirubin Total 0.8 mg/dL (0.2-1.3); Blood Urea Nitrogen 31 mg/dL (9-20); Calcium 9.3 mg/dL (8.4-10.2); Carbon Dioxide 26 mmol/L (22-32); Chloride 105 mmol/L (98-107); Estimated Glomerular Filt Rate > 60.0 mL/min (>60); Globulin 3.2 g/dL (1.7-4.1); Glucose 119 mg/dL (80-110); HEMOLYSIS < 15 (0-50); Potassium 4.2 mmol/L (3.4-5.1); Sodium 137 mmol/L (137-145); Total Protein 6.1 g/dL (6.3-8.2)
[2021-05-20] MEDS: PANTOPRAZOLE DR 20 MG TABLET PO (05:59)
[2021-05-20 06:34] LABS: Add Manual Diff / Slide Review YES; Platelet Count 27 X10^3/uL (150-400)
[2021-05-20 07:03] LABS: Neutrophils Absolute Manual 5829 /uL (3000-5900); Nucleated Red Blood Cells 9 #/Diff; Total Cells Counted 100
[2021-05-20 07:04] LABS: Anisocytosis 1+; Polychromasia 2+
[2021-05-20 07:30] VITALS: RESP 18; TEMP 36.4; O2SAT 96
[2021-05-20] MEDS: OXYCODONE IR 5 MG TABLET PO (08:50)
[2021-05-20 08:51] VITALS: BP 124/80; PULSE 71
[2021-05-20] MEDS: carvediloL 12.5 MG TABLET PO (08:51)
[2021-05-20] MEDS: dexAMETHasone 1 MG TABLET 2 MG PO (08:51)
[2021-05-20] MEDS: ASPIRIN EC 81 MG TABLET PO (08:51)
[2021-05-20] MEDS: DULOXETINE 30 MG CAPSULE PO (08:51)
[2021-05-20] MEDS: ACETAMINOPHEN 325 MG TABLET 650 MG PO (08:51)
[2021-05-20] MEDS: BICALUTAMIDE 50 MG TABLET PO (08:51)
[2021-05-20] MEDS: PHENAZOPYRIDINE 100 MG TABLET PO (08:52)
[2021-05-20] MEDS: SODIUM CHLORIDE 0.9% FLUSH 10 ML IV (08:52)
[2021-05-20] MEDS: MIRTAZAPINE 15 MG TABLET PO (08:52)
[2021-05-20] MEDS: BUDESONIDE 0.5 MG/2 ML NEB INH (09:14)
[2021-05-20 09:17] VITALS: PULSE 71; RESP 16; O2SAT 96
--- NOTE | 2021-05-20 09:46 | PC.NURSE ---
Addendum entered by Ammy Mathew R.N. 05/20/21 12:50: Patient, patient's Chantale and sister Audelia given discharge instructions regarding f/u appointment, pain control, ABX therapy (denied wanting to speak with pharmacist about new medication), activity and fall risk. Patient and family verbalized understanding. IV removed, patient tolerated, patient denied further needs. Patient discharge via wheelchair. Original Note: Patient A/O x 3, ambulating in room independently, endorses groin pain 5/10, reports it is significantly improved since yesterday. Condom cath intact, spoke with Nate MEZA to d/c this and fluid restriction. Patient up to shower, refusing help. Patient also refusing SCD's. Patient denies feeling SOB with activity, on RA this AM at 96%, lungs CTA except RLL, fine crackles noted prior to breathing treatment. Patient encouraged to use IS.
--- NOTE | 2021-05-20 11:15 | PT.IPTN ---
Current Diagnoses Acute respiratory failure with hypoxia (05/17/21) Physical Therapy Treatment Note M2 PT-IP Current Condition Start: 05/19/21 16:07 Freq: NEEDED Status: Active Protocol: Document 05/19/21 14:31 AB (Rec: 05/19/21 16:27 AB [id number]) Physical Therapy Current Condition Current Condition Evaluation Date 05/19/21 Treatment Diagnosis hypoxic respiratory failure; prostate CA; difficulty in walking Onset Date 05/17/21 Precautions Other Precautions O2 sat, falls, chemo prec. M3 PT-IP Subjective Start: 05/19/21 16:07 Freq: NEEDED Status: Active Protocol: Document 05/20/21 10:51 LJ (Rec: 05/20/21 11:15 LJ [id number]) Subjective Physical Therapy Visit Type Type Treatment Note Visit Start Time 10:32 Visit Stop Time 10:46 Total Visit Minutes 14 Number of PLUGMAN Visits 1 Physical Therapy Visit Comments Patient Comments agreeable to do PT M4 PT-IP Mobility and Gait Start: 05/19/21 16:07 Freq: NEEDED Status: Active Protocol: Document 05/20/21 10:51 LJ (Rec: 05/20/21 11:15 LJ [id number]) PT-Transfer Assessment Sit to and From Stand Sit to and from Stand Standby Assistance,1 Person Assistance,Use of Upper Extremities Equipment Transfer Assistive Device Gait Belt,Front Wheeled Walker Orthotic/Prosthetic Devices or Brace: No Transfers Transfer Destination Chair Transfer Technique Stand Step Pivot Transfer Ability Level of Assist Standby Assistance,Contact Guard Assistance,1 Person Assistance Comments Mobility Comments Pt in chair O2 sat at 96%-97% on room air. Pt stood CGA from chair and proceeded to ambulate to stairs in hallway ~150'. O2 dropped to 78% at stairs. Pt denied feeling dizzy or SOB. Pt ambultaed back to room with O2 remaining at 76% and sat to rest for ~5 minutes while doing PLB in between talking. O2 returned to 97%. No signs of respiratory distress during PLB or talking. Pt then ambulated in hallway another 50' then returned to room and performed x5 sit<>stand to/ from chair. O2 remained at 96% -97% after second ambulation and sit><stand exercises. Gait Assessment Gait Gait Assistance Required: Standby Assistance,Contact Guard Assist,1 Person Assist Distance (Feet) 250 Able to Maintain Weight Bearing Status No During Gait Assistive Devices Assistive Device Gait Belt,Front Wheeled Walker Orthotic/Prosthetic Devices or Brace: No Gait Deviations General Gait Pattern Decreased Stride Length, Decreased Feet Clearance Factors Limiting Gait Function Factors Limiting Gait Function Decreased Activity Tolerance, Decreased Strength,Poor Balance,Poor Safety Awareness, Respiratory Distress Comments Gait Comments presents with decrease LE elevation and decrease step length. No dizziness or LOB however he required cues to avoid obsticals in hallway x2. M5 PT-IP Objective Assessments Start: 05/19/21 16:07 Freq: NEEDED Status: Active Protocol: Document 05/19/21 14:31 AB (Rec: 05/19/21 16:27 AB [id number]) Orientation Orientation/Cognition Level of Alertness Alert Orientation Name,Place,Situation Language Function Ability Hard of Hearing Safety Awareness Decreased Safety Awareness Gross Range of Motion Lower Extremity ROM Assessment Within Functional Limits Strength Lower Extremity Strength Hip 4-/5 Knee 4-/5 Sensation Assessment Sensation Gross Sensation WNL Muscle Tone Muscle Tone WNL Yes M6 PT-IP Treatment Start: 05/19/21 16:07 Freq: NEEDED Status: Active Protocol: Document 05/20/21 10:51 DAYNA (Rec: 05/20/21 11:15 LJ [id number]) Physical Therapy Treatment Education Education Provided Safety M7 PT-IP Assessment and Plan Start: 05/19/21 16:07 Freq: NEEDED Status: Active Protocol: Document 05/20/21 10:51 DAYNA (Rec: 05/20/21 11:15 LJ [id number]) PT Summary Assessment and Plan Potential Rehabilitation Potential Fair Status of Condition at Evaluation Evolving Summary Impairments Pain,ROM,Strength,Balance, Coordination,Sensation,Tone, Cognition,Bed Mobility, Transfers,Gait,Activity Tolerance Assessment Summary Pt requiring CGA to SBA with ambultion using FWW. Presents with decrease activity tolerance affecting mobility level and safety. Pt with O2 sat at room air from 96-97% at rest to 78%-79% after activity. Required 5 minutes seated rest break for O2 to return to 96% with occasional PLB. His PLB was not with deep breaths but pt stated he was breathing in deeply. During treatment and O2 decline pt showed no signs of shortness of breath, difficulty breathing, or lightheadedness/ dizziness. He was conversing throughout treatment. He plans to return home and will have his sister to assist him. pt stated that his sister is a nurse. Pt will benefit from HHPT. Goals Bed Mobility Goal Independent Transfer Goal Independent,Front Wheeled Walker Gait Goal Independent,Front Wheel Walker Gait Distance 100 Other Goals up/down 10 step B rails SBa Days to Meet Goals 5 Frequency of Treatment Frequency Of Treatment Once a Day Treatment Plan Physical Therapy Treatment Plan Bed Mobility Training,Transfer Training,Gait Training, Therapeutic Exercise,Balance Retraining,Discharge Planning, Neuromuscular Re-ed, Coordination Retraining Precautions Other Precautions O2 sat; falls; chemo prec. Recommendations To Nursing Amount of Assist Needed 1 Person Assist Discharge Recommendations PT Discharge Recommendations Home with 12/05 Assist Available,Home Health Transportation Needs at Discharge Private Vehicle
--- NOTE | 2021-05-20 12:17 | RT ---
Patient does not currently qualify for home oxygen saturations remain greater than 92% at rest and with ambulation
--- NOTE | 2021-05-20 14:33 | PM.DS.1 ---
History of Present Illness History of Present Illness Chief complaint: Possible blood clot- sent by PCP Narrative: Per Zoie Iyer: Patient is a 65-year-old male Ariel Hercules presented to the ED at the request of his PCP for evaluation of blood clot. Patient reports increasing shortness of breath and sharp and stabbing chest pain over the past 2 weeks. His pain is worse with deep breath and with ambulation. He denies any radiation of the pain and states it is sharp and stabbing. He does have increasing shortness of breath and fatigue, with exertion. He has had no recent travel. He has had no fever or chills. He has had a dry cough but without production or blood. Patient is complaining of pain with urination which has been chronic for several months and he also states that he has not had a bowel movement in 3 days. Patient also reports that he has had occasional right ankle swelling. Patient states that in February he did have a pleural effusion with thoracentesis in the removed 1 L of fluid. He denies no other recent illness other than prostate cancer (03/09), no recent travel, or exposure to others who are sick, he denies recent head injury or trauma, patient denies any cardiac history CHF, COPD, asthma, respiratory disease, and quit smoking 32 yrs ago. Patient has a history of hypertension, GERD, prostate cancer undergoing daily oral chemotherapy regimen which started in February 2021, patient has a history of a pleural effusion in February of which they removed 1 L, he denies any other medical history. Patient's oncologist is Dr. Mayen @ [facility] and his PCP is with [facility]. Upon admit exam patient has increased work of breathing, using accessory muscles and has increasing shortness of breath on room air satting 88-92, with tachycardic heart rate between 115-136, the patient denies chest pain at this time except for when trying to take a deep breath. Patient's breathing is shallow tachypneic, pale, and diaphoretic. Patient's vitals floor temp 97.2?, BP 152/86, RR 118, RR 27, and was satting between 88-91% on room air. Ordered stat respiratory consult patient was placed on 10 L high-flow which seemed to improve his respiratory rate. Though patient's heart rate continued to be tachycardic up to 140's. Patient's CBC demonstrated no elevated wbc's but did have neutrophils at 5858, MCV 106.5, and platelets 31 these are likely related to patient's ongoing p.o. chemotherapy treatment for prostate cancer. Patient's HGB 11.3, HCT 33.4. Patient has very mild hyponatremia Na 132, Cl 95, BUN 24, total creatinine kinase 30, total bili 1.7, AST 69, alk phos 341, BNP elevated at 961. Patient's chest CTA demonstrated no evidence acute pulmonary emboli. Patchy bilateral ground-glass opacities, left greater than right. Unable to rule out viral pneumonia. Alternatively, this may potentially represent asymmetric pulmonary edema or other inflammatory or infectious process. Small right pleural effusion with chronic right sided volume loss. Fluid insufficient to sample currently. Sclerotic bony metastatic disease consistent with prostate metastatic disease. Patient admitted for acute respiratory failure, respiratory alkalosis with hypocapnia and hypoxia. Discharge Providers Provider Date of admission: 05/17/21 16:37 Discharge Date: 05/20/21 Primary care physician: LYNSEY Dougherty Consults: 05/17/21 18:20 Consult to Respiratory Therapy Evaluate & Treat Comment: HF exacerbation/ARF Physician Instructions: Evaluate and treat 05/17/21 19:53 Consult to Respiratory Therapy Evaluate & Treat Comment: SOB Physician Instructions: Evaluate and treat 05/19/21 14:39 Consult to Physical Therapy Evaluate & Treat Comment: Physician Instructions: Evaluate and Treat 05/19/21 16:21 Consult to Respiratory Therapy Evaluate & Treat Comment: rest and exercise 02 Sat to evaluate for home O2 Physician Instructions: Evaluate and treat 05/19/21 16:31 Consult to Physical Therapy Evaluate & Treat Comment: Physician Instructions: FWW for home use Discharge provider: Carmelo Alejandre MD Summary Hospital Course Discharge Diagnosis: 1. Acute hypoxemic respiratory failure secondary to pneumonia 2. Thrombocytopenia and anemia secondary to chemotherapy 3. Hypertension 4. GERD 5. Anxiety 6. Metastatic prostate cancer Hospital Course: Mr. Hercules was admitted with shortness of breath and chest pain. Initially there was concern for a possible PE but this was ruled out by CTA. He was also noted to have groundglass opacities on CT and a small right pleural effusion too small to be tapped. His procalcitonin was mildly elevated. There was thought he might have had heart failure, however he became hypotensive with diuresis and his ECHO did not show any evidence of decreased EF. He likely had a pneumonia and with antibiotics his respiratory status improved. He was off oxygen on discharge. He was feeling improved. He did have significant thrombocytopenia and anemia secondary to chemotherapy but did not need to be transfused in the hospital. Exam Vital Signs (past 8 hours): Oxygen Delivery Method Room Air Oxygen Flow Rate 0 Narrative Exam Narrative: GEN: chronically ill appearing, no acute distress PULM: Decreased breath sounds no crackles rhonchi or wheezing CV: regular rate and rhythm with no murmurs GI: Soft, nontender, non distended. no palpable masses Skin: Multiple Ecchymoses of the upper extremities Objective Labs Result Diagrams: 05/20/21 05:25 05/20/21 05:25 [facility] Medical History (Updated 05/17/21 @ 22:42 by NATA Beal-EDER) Benign essential HTN Chemotherapy-induced fatigue GERD (gastroesophageal reflux disease) Prostate cancer Surgical History (Updated 05/17/21 @ 22:42 by SHAHZAD Beal) History of cataract surgery History of detached retina repair Family History (Updated 05/17/21 @ 22:43 by SHAHZAD Beal) Mother Hypertension Sister Diabetes mellitus Social History household members: spouse Smoking Status: Former smoker alcohol intake: current Discharge Plan Discharge Plan Patient Disposition: Home Provider Discharge Comment: Mr. Hercules was admitted with trouble breathing. This was due to a pneumonia. He had improvement with antibiotics and will be discharged to complete a total of one week of antibiotics. He should follow up with his doctor within one week. Discharge orders & Medications Prescriptions: New amoxicillin-pot clavulanate 875-125 mg tablet 1 tab PO BID Qty: 8 RF: 0 Continued ASPIRIN (Aspirin Ec) 81 mg PO Q DAY Qty: 0 RF: 0 losartan 50 mg tablet 50 mg PO DAILY RF: 0 bicalutamide 50 mg tablet 50 mg PO DAILY RF: 0 carvedilol 12.5 mg tablet 12.5 mg PO BID RF: 0 cyanocobalamin (vitamin B-12) 100 mcg Tablet 100 mcg PO DAILY RF: 0 prochlorperazine maleate 10 mg tablet 10 mg PO Q6H PRN (Reason: Nausea) RF: 0 ondansetron 8 mg tablet,disintegrating 8 mg translingual Q8H PRN (Reason: Nausea) RF: 0 dexamethasone 1 mg tablet 1 mg PO DAILY RF: 0 omeprazole 20 mg capsule,delayed release(DR/EC) 20 mg PO DAILY RF: 0 Flovent HFA 220 mcg/actuation HFA aerosol inhaler 1 puff INHALATION BID RF: 0 mirtazapine 15 mg tablet 15 mg PO DAILY RF: 0 oxycodone 5 mg tablet 5 mg PO Q4H PRN (Reason: Pain (Scale Score 4-6)) RF: 0 duloxetine 30 mg capsule,delayed release(DR/EC) 30 mg PO DAILY RF: 0 cholecalciferol (vitamin D3) 250 mcg (10,000 unit) Tablet 250 mcg PO DAILY RF: 0 Follow up/Referrals: Marita Orozco FNP-[facility]ic[facility] [Primary Care Provider] - Discharge Data Primary Care Provider: Marita Orozco Quality VTE Deep Vein Thrombosis/Pulmonary Embolism Present on Admission: No MIPS - DC The patient has current or prior documentation of left ventricular ejection fraction (LVEF) less than 40%, or moderate or severely depressed left ventricular systolic function.: No
--- NOTE | 2021-05-20 14:40 | CM.DPNOTE ---
DC Note Home w/family to assist and close outpatient f/u recommended, denies need for HH. No further needs from [employer] team JW
== END 2021-05-20 12:20 | disposition home or self-care (01) | DRG 193 ==
LOC: ED 11:19 → AC 18:51
PROVIDERS: Nurse Practitioner Family; Admitting Provider Internal Medicine; Emergency Provider Emergency Medicine; PCP Nurse Practitioner; Referring Provider Emergency Medicine; Visit Provider Internal Medicine
DX: J18.9 Pneumonia, unspecified organism (principal); J96.01 Acute respiratory failure with hypoxia; E87.3 Alkalosis; C79.51 Secondary malignant neoplasm of bone; D69.59 Other secondary thrombocytopenia; I10 Essential (primary) hypertension; D64.9 Anemia, unspecified; C61 Malignant neoplasm of prostate; T45.1X5A Adverse effect of antineoplastic and immunosuppressive drugs, initial encounter; K21.9 Gastro-esophageal reflux disease without esophagitis; F41.9 Anxiety disorder, unspecified; Z87.891 Personal history of nicotine dependence; Z20.822 Contact with and (suspected) exposure to COVID-19
CPT/HCPCS: 36415; 51702; 71045; 71275; 80053; 80061; 81001; 82550; 82805; 83605; 83735; 83880; 84145; 84443; 84484; 85007; 85025; 85610; 87086; 87633; 87635; 93005; 93306; 94640; 94760; 96374; 97116; 97162; 97530; 99285; C9803; G0378; J1940; J2543; J3475; Q9967